=== PATIENT | male | born 1955 | race Caucasian/White ===

== ENCOUNTER → 2021-01-08 15:47 | Outpatient (BNVA) | payer MEDICARE, SELFPAY | PROVIDERS: Family Provider Internal Medicine; Visit Provider Surgery | DX: K92.1 Melena (principal); R13.10 Dysphagia, unspecified; Z11.52 Encounter for screening for COVID-19 | CPT/HCPCS: 87635 ==

== ENCOUNTER 2021-01-13 07:54 | Day surgery (SDC) | payer MEDICARE, SELFPAY ==
[2021-01-12 12:17] VITALS: BMI 29.5
[2021-01-13 09:03] VITALS: BP 164/98; PULSE 78; RESP 18; TEMP 36.6; O2SAT 96
[2021-01-13] MEDS: sodium chloride 0.9% 1,000 ML 30 ML IV (09:10)
--- NOTE | 2021-01-13 10:29 | W.PM.OPSUD ---
Surgery/Procedure H&P Update DATE OF PROCEDURE: January 13, 2021 DATE H&P PERFORMED: 01/30/21 H&P UPDATE INFORMATION: I have reviewed H&P completed within last 30 days, I have examined patient prior to procedure and No changes to prior documentation PREOP DIAGNOSIS: panendoscopy PLANNED PROCEDURE: Operation Date: 01/13/21 09:45 Proposed Procedures p EGD Dilation W/ Balloon(Not Applicable) - Rommel Rosas MD s Colonoscopy(Not Applicable) - Rommel Rosas MD
--- NOTE | 2021-01-13 10:30 | ANES.PREANE2 ---
Pre-Anesthetic Assessment Pre-Anesthetic Assessment: Height/Weight: Height 1.75 m Weight 90.718 kg Temp Pulse Resp BP Pulse Ox 97.8 F 78 18 164/98 96 01/13/21 09:03 01/13/21 09:03 01/13/21 09:03 01/13/21 09:03 01/13/21 09:03 Preop Diagnosis: panendoscopy Proposed Procedure: Operation Date: 01/13/21 09:45 Proposed Procedures p EGD Dilation W/ Balloon(Not Applicable) - Rommel Rosas MD s Colonoscopy(Not Applicable) - Rommel Rosas MD Was Beta Tommie taken within 24 hours: N/A Last intake: Intake Last Liquid Date 01/12/21 Last Solid Date 01/12/21 Social: Social History: No alcohol and No tobacco Exam: Pre-Anes Outpt Exam: alert, oriented x 3, clear to auscultation bilaterally and regular rate & rhythm Airway: Submandibular: WNL Cervical ROM: WNL MP: 2 Pulmonary: Pulmonary: None reported CV/HEM: CV/HEM: HTN : : None reported Hepatic: Hepatic: None reported GI: GI: GERD Comments: Dysphagia Metabolic: Metabolic: DM Comments: Gout Musc/skel: Musc/skel: None reported Neuropsych: Neuropsych: None reported Anesthetic Plan: ASA status: 2 Anesthesia: MAC Meds/Allergies Current Medications: Current Medications Generic Name Dose Route Start Last Admin Trade Name Freq PRN Reason Stop Dose Admin Sodium Chloride 1,000 mls @ 30 ml s/hr 01/13/21 08:45 01/13/21 09:10 Sodium Chloride 0.9% IV 01/14/21 08:44 30 mls/hr .Q24H OREN Administration PFSH Anesthesia PFSH: Medical History (Updated 01/02/21 @ 17:47 by Rommel Rosas MD) Angel's palsy Diabetes DVT (deep venous thrombosis) Hypertension Nephrolithiasis Surgical History (Updated 01/02/21 @ 09:30 by Rommel Rosas MD) History of colonoscopy Family History (Updated 01/02/21 @ 08:54 by Tasneem Reyes, RN) Denies family history of Anesthesia complication Bleeding disorder Social History (Updated 01/02/21 @ 08:55 by Tasneem Reyes, RN) Smoking and tobacco status: never smoked Data Anesthesia Cardiac Studies: No Data to Display
[2021-01-13 11:08] VITALS: BP 136/82; PULSE 89; RESP 16; TEMP 36.6; O2SAT 99
[2021-01-13 11:23] VITALS: BP 150/84; PULSE 76; RESP 18; TEMP 36.7; O2SAT 100
--- NOTE | 2021-01-13 12:02 | ANE.PACU2 ---
Inpatient post-anesthesia follow up: Airway intact: Yes Vital signs: Temperature 98.0 F Pulse Rate 76 Respiratory Rate 18 Blood Pressure 150/84 Pulse Oximetry 100 Oxygen Delivery Me thod Room Air Oxygen Flow Rate 2 Fraction of Inspir ed Oxygen Hydration adequate: Yes Nausea and vomiting: No Pain level: 1 Mental status: Baseline
[2021-01-19 10:21] LABS: Miscellaneous Test See Scanned Lab Rpt
[2021-01-20 08:47] LABS: Miscellaneous Test See Scanned Lab Rpt
== END 2021-01-13 12:15 | disposition home or self-care (01) ==
PROVIDERS: Visit Provider Surgery
PROC: 0DJD8ZZ Inspection of Lower Intestinal Tract, Via Natural or Artificial Opening Endoscopic (ICD-10-PCS; CPT 45378; 2021-01-13 09:45)
DX: K92.1 Melena (principal); C15.9 Malignant neoplasm of esophagus, unspecified; D12.5 Benign neoplasm of sigmoid colon; R13.10 Dysphagia, unspecified; Z86.718 Personal history of other venous thrombosis and embolism; E11.9 Type 2 diabetes mellitus without complications; I10 Essential (primary) hypertension; K21.9 Gastro-esophageal reflux disease without esophagitis
CPT/HCPCS: 43239; 45380; 88305; 88341; 88342; 88361; 88374; 96360; 96361; J2704; J7030

== ENCOUNTER 2021-02-06 11:31 | Outpatient (CLI) | payer MEDICARE, SELFPAY ==
[2021-02-06 12:44] LABS: Blood Urea Nitrogen 30 mg/dL (8-23); Glomerular Filtration Rate 31.7 mL/min (90-130)
[2021-02-06] MEDS: iohexol 300 mg/mL 50 mL Btl PO (12:53)
[2021-02-06] MEDS: iodixanol 320 mg/mL 100mL Btl IV (13:11)
--- NOTE | 2021-02-06 13:30 | CT_ITS ---
WS: [id number] CT scan of the chest With IV contrast, CT scan of the abdomen and pelvis with IV contrast and oral contrast. Additional two-dimensional coronal and sagittal reconstruction was performed. 02/06/2021 Clinical Data: K22.8 - Other specified diseases of esophagus Comparison: CT abdomen , 08/03/2014. DLP: 2563.[address] scans at [facility] use at least one of these dose optimization techniques: automat ed exposure control; mA and/or kV adjustment per patient size (includes targeted exams where dose is matched to clinical indication); or iterative reconstruction. Findings: Chest: The esophagus is dilated from the thoracic inlet to the gastroesophageal junction. At the gastroesoph ageal junction there is a probable soft tissue mass measuring 4.14 cm. There is food material and domo ris within the dilated esophagus. No nodules, masses or effusions are seen. No pneumonia or pneumothorax is present. The heart size is normal with no pericardial effusion. The pulmonary arterial system and thoracic aorta demonstrate no abnormalities or dilatations. There is no axillary or significant mediastinal adenopathy. The thoracic spine shows degenerative johny nge of the bodies. Abdomen/pelvis: The liver, gallbladder, spleen, adrenal glands and pancreas are normal. The kidneys show equal bilateral contrast excretion with bilateral cysts. Largest cyst on the right i s 5.0 cm in the central and posterior portion. No hydronephrosis or renal calculi are seen. The abdominal aorta is normal in size with calcification in the wall.. No appendicitis or diverticulitis is seen. Oral contrast is in the stomach, small bowel and colon, an d there is no bowel dilatation. No abscess, adenopathy, ascites, mass, obstruction or free air is see n. The bladder is unremarkable. The prostate is enlarged. No inguinal hernia is seen. The bones of the lumbar spine, pelvis, and hips show degenerative change of the lower lumbar vertebr al bodies.. CT/CT chest abd pel w con* Impression: 1. Dilated esophagus with a large amount of debris. 2. Probable soft tissue mass at gastroesophageal junction and recommend EGD and /or esophagram. 3. Negative for acute cardiopulmonary disease. 4. Negative for acute intra-abdominal and pelvic abnormalities.
== END 2021-02-06 11:32 | disposition home or self-care (01) ==
PROVIDERS: PCP Internal Medicine; Visit Provider Surgery
DX: K22.8 Other specified diseases of esophagus (principal); K92.1 Melena; R13.10 Dysphagia, unspecified
CPT/HCPCS: 71260; 74177; 82565; 84520; Q9967

== ENCOUNTER 2021-02-09 09:52 | Outpatient (CLI) | payer MEDICARE, SELFPAY ==
--- NOTE | 2021-02-09 17:37 | ONC CON_ITS ---
Dr. Billy New Patient Note Patient: Reza Eduardo Unit #: [id number]: 1955 Dicatated By: Shae Billy M.D.Date of Visit: Feb 09, 2021 Onc MED New Patient/Consult Referring Physician: Dr. PUNEET BANKS M.D. History of Present Illness: Mr. Reza Eduardo, is a 65-year-old gentleman with history of progressive dysphagia for the last few months and significant weight loss due to off and on nausea vomiting was referred to surgery for evaluation and on January 13, 2021 patient underwent EGD and colonoscopy EGD confirmed at 35 cm there was a mass noted which was not completely obstructing but was bleeding. 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 No nodules, masses or effusion seen. No significant mediastinal or axillary lymphadenopathy seen, liver was normal. Past medical history significant for Angel's palsy, diabetes, DVT, hypertension, nephrolithiasis Patient denies any hematemesis or hemoptysis patient denies any fever or chills, denies any recent history of aspiration pneumonia patient denies any history of jaundice denies any history of abdominal pain. Denies any bony pains Past Medical History: Mr. Eduardo's medical history consists of Angel's Palsy, DVT, hypertension, and type II diabetes. Past Surgical History: Mr. Eduardo's surgical/procedural history consists of colonoscopy in 2020 and cataract excision in 2013. Medications: Allopurinol 1 Tablet (of 300 mg) Oral daily, Atorvastatin Calcium 1 Tablet (of 20 mg) Oral daily, Cetirizine HCl 1 Tablet (of 10 mg) Oral daily, Lisinopril-hydroCHLOROthiazide 1 Tablet (of 20-25 mg) Oral daily, Omeprazole 1 Caplet (of 40 mg) Capsule Delayed Release Oral daily, Xarelto 1 Tablet (of 20 mg) Oral daily Allergies: No Known Allergies. Social History: Mr. Eduardo is . Mr. Eduardo has never smoked. He has no history of drinking. Family History: Mr. Eduardo's mother at age 81. Mr. Eduardo's father at age 56: myocardial infarction. Mr. Eduardo has 2 sisters: 2 . Review Of Symptoms: Review of Systems is not available for this patient. Vital Signs: Performed on Feb 09, 2021 14:23: 6, 0, 0.00, 0.00 sq.m, 99 %, 84 /min, 18 /min, 171/72 mm(hg) (HIGH), 98.7 F, and 189.4 lbs (HIGH). Performance Status: 1 - No physically strenuous activity, but ambulatory and able to carry out light or sedentary work (e.g. office work, light house work). (ECOG) Physical Examination: ENMT - No mouth sores, no thrush, no jaundice, Respiratory - Lungs are clear to auscultation, Cardiovascular - Regular rate and rhythm of heart, Abdomen - Soft, bowel sounds present, Extremities - No visible edema or rash. Lab/Imaging: Most recent lab results are not available for this patient. 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 Probable soft tissue mass at the gastroesophageal junction. No other abnormality seen in abdomen or pelvis Dysphagia/weight loss due to above History of DVT, on Xarelto History of Angel's palsy, History of diabetes, History of hypertension. Plan: Discussed with patient regarding his CT scan of chest abdomen pelvis finding as well as pathology, patient needs staging work-up which include CT PET scan and endoscopic ultrasound, as per patient he is scheduled to see Dr. Mc, GI surgical oncologist in [facility] on February 23, 2021, and he is already scheduled to see radiation oncology Patient will return to clinic after CT PET scan and surgical evaluation, at that time will discuss treatment plan based on CT PET scan finding and surgical/radiation oncology evaluation. Signed By: Shae Billy M.D. <<Signature on File>>
== END 2021-02-09 09:53 | disposition home or self-care (01) ==
LOC: ONCMED 10:00
PROVIDERS: PCP Internal Medicine; Visit Provider Internal Medicine Hematology & Oncology
DX: C16.0 Malignant neoplasm of cardia (principal); Z86.718 Personal history of other venous thrombosis and embolism; Z79.01 Long term (current) use of anticoagulants
CPT/HCPCS: 99205

== ENCOUNTER 2021-03-25 09:09 | Outpatient (CLI) | payer MEDICARE, SELFPAY ==
--- NOTE | 2021-03-25 14:24 | ONC FU_ITS ---
Dr. Billy follow up note Patient: Reza Eduardo Unit #: [id number]: 1955 Dicatated By: Shae Billy M.D.Date of Visit:March 25, 2021 Onc Med Follow-up/Prog Note History of Present Illness: Mr. Reza Eduardo, is a 65-year-old gentleman with history of progressive dysphagia for the last few months and significant weight loss due to off and on nausea vomiting was referred to surgery for evaluation and on January 13, 2021 patient underwent EGD and colonoscopy EGD confirmed at 35 cm there was a mass noted which was not completely obstructing but was bleeding. 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 No nodules, masses or effusion seen. No significant mediastinal or axillary lymphadenopathy seen, liver was normal. Patient underwent CT PET scan on March 18, 2021 which showed increased FDG activity associated with massive GE junction with SUV of 5.8. No evidence of metastatic disease or other abnormality patient had a J-tube placement for nutrition on February 27, 2021 Past medical history significant for Angel's palsy, diabetes, DVT, hypertension, nephrolithiasis Patient denies any hematemesis or hemoptysis patient denies any fever or chills, denies any recent history of aspiration pneumonia patient denies any history of jaundice denies any history of abdominal pain. Denies any bony pains Came for follow-up, denies any specific complaints, tolerating nutrition via J-tube well, no fever chills, no melena or hematochezia, no hemoptysis or hematemesis, no abdominal pain. Patient has seen Dr. Mc in [place] who placed J-tube, as well as Port-A-Cath and after reviewing his CT PET scan suggested neoadjuvant chemoradiation. Patient is here for further discussion Medications: Allopurinol 1 Tablet (of 300 mg) Oral daily, Atorvastatin Calcium 1 Tablet (of 20 mg) Oral daily, Cetirizine HCl 1 Tablet (of 10 mg) Oral daily, Lisinopril-hydroCHLOROthiazide 1 Tablet (of 20-25 mg) Oral daily, Omeprazole 1 Caplet (of 40 mg) Capsule Delayed Release Oral daily, Xarelto 1 Tablet (of 20 mg) Oral daily Allergies: No Known Allergies. Review of Systems: Review of Systems is not available for this patient. Vital Signs: Performed on March 25, 2021 09:54 Temperature - 97.8 F (LOW) Pulse - 89 /min Respiration - 18 /min BP - 86/54 mm(hg) (LOW) O2 Sat - 99 % Pain - 0 Performance Status: 1 - No physically strenuous activity, but ambulatory and able to carry out light or sedentary work (e.g. office work, light house work). (ECOG) Physical Examination: ENMT - No mouth sores, no thrush, no jaundice, Respiratory - Lungs are clear to auscultation, Cardiovascular - Regular rate and rhythm of heart, Abdomen - Soft, bowel sounds present, J-tube site clean, without discharge, Extremities - No visible edema. Lab/Imaging: Most recent lab results are not available for this patient. 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 Probable soft tissue mass at the gastroesophageal junction. No other abnormality seen in abdomen or pelvis CT PET scan done on March 18, 2021 shows increased FDG activity associated with mass at the GE junction with SUV of 5.8 and no evidence of metastatic disease or other abnormality Clinical stage II (T2-3), NX MX Status post J-tube placement on March 05, 2021 Dysphagia/weight loss due to above History of DVT, on Xarelto History of Angel's palsy, History of diabetes, History of hypertension. Plan: Discussed with patient regarding his CT PET scan report which showed localized disease probably T2 or T3 lesion, no visible lymph nodes on CT PET scan, clinically he may have stage II disease, he was evaluated by Dr. Mc who suggested neoadjuvant chemoradiation and then he will evaluate him for possible esophagectomy Discussed with patient regarding neoadjuvant chemoradiation with weekly carboplatin/Taxol, all the side effect possible benefits associate with carboplatin/Taxol including but not limited to bone marrow suppression, nausea vomiting, allergic reaction, peripheral neuropathy, most likely with Taxol or hyperglycemia with steroid used as premedication for Taxol infusion. Hair loss and esophagitis with combined chemoradiation were mentioned further teaching will be done by chemotherapy nurse, at this point will consider carboplatin AUC 2 and Taxol 50 mg per metered squared weekly concurrent with radiation therapy. Patient already has Port-A-Cath placed in, will obtain approval from his insurance prior to the treatment Patient already has appointment with radiation oncology. Patient has history of diabetes mellitus, will consider sliding scale to prevent steroid-induced hyperglycemia. Patient return to clinic 1 week after chemoradiation is initiated with CBC CMP Signed By: Shae Billy M.D. <<Signature on File>>
== END 2021-03-25 09:10 | disposition home or self-care (01) ==
LOC: ONCMED 09:12
PROVIDERS: PCP Internal Medicine; Visit Provider Internal Medicine Hematology & Oncology
DX: C16.0 Malignant neoplasm of cardia (principal); R13.10 Dysphagia, unspecified; R63.4 Abnormal weight loss; E11.9 Type 2 diabetes mellitus without complications; I10 Essential (primary) hypertension; G51.0 Bell's palsy; Z86.718 Personal history of other venous thrombosis and embolism; Z79.01 Long term (current) use of anticoagulants; Z79.899 Other long term (current) drug therapy
CPT/HCPCS: 99214

== ENCOUNTER 2021-04-03 05:43 | Outpatient (RCR) | payer MEDICARE, SELFPAY ==
--- NOTE | 2021-03-31 | CT_ITS ---
Radiation Therapy Planning CT images; total exam DLP: 863.71 mGy-cm MTDD
--- NOTE | 2021-03-31 12:40 | N.ONRAD NP_ITS ---
Radiation Oncology New Patient Visit Patient: Reza Eduardo MR#: [id number] : 1955> Age: 65> Sex: Male> Dictated by: Dr. Henrique Ellison Date of Service: 03/31/2021 Referring Physician(s) : Shae Billy M.D. 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 Radiotherapy to date: Summary > No prior radiation therapy. 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 He has had progressive difficulty with swallowing for several months and now a total of 64 pound weight loss. EGD and Bx done revealing adenocarcinoma 01/13/2021. PEG placed and can so far only tolerate 35 ml/hr 23 hr continuous infusion. Higher rates not yet tolerated. Still loosing some weight of 7 pounds over last 9 days. Unable to swallow even water by mouth now. Very fatigued even to go out on his porch. Feels now like a vegetable due to his profound disabling fatigue. Frustrated about the time it has taken to finally get to his treatment. No pain, N or V. PET/CT 03/18/2021 Localized uptake at the GE junction only. No occult metastatic disease see. Current Medications: Allopurinol, atorvastatin Calcium, cetirizine HCl, lisinopril-hydroCHLOROthiazide, omeprazole, xarelto. Allergies: No Known Allergies Medical History: - Angel's Palsy, - dVT, - hypertension, - type II diabetes. No history of collagen vascular disease. No previous radiation therapy. Surgical History: Cataract excision in 2013 and colonoscopy on 01/13/2021. Family History: Father is at age 56 having experienced myocardial infarction. Mother is at age 81. Sister is at age 75. Sister is at age 62. Social History: Last screened on 03/25/2021 - Never smoked. Last screened on 03/25/2021 - Never drank. x25 years has 23 yr old daughter with this . 2 sons and 1 step daughter. No cigarette or alcohol use. 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 Current Complaints / Review of Systems: . Vital Signs: Performed on 03/31/2021 9:24 AM BMI - 24.248 kg/m2 (high), Height - 69.00 in, Weight - 164.2 lbs, Temperature - 97.9 f, Pulse - 72, Respiration - 18, O2 Sat - 100 %, Pain - 2 and BP - 109/ 67 mm(hg). Physical Exam: Pleasnt in NAD. No palpable supraclav andenopathy, Port in right infraclav space. Lungs clear. Heart regular. PEG tube in ant abd wall nontender. No pedal edema. Performance Status: 2 Pathology: Primary, c16.0 - malignant neoplasm of cardia, Diagnosed 02/09/2021 (active). Lab: Imaging: See HPI Impression:St II adenocarcinoma of GE junction. Significant ongoing weight loss dispite maximal efforts to pursue 23 hr PEG tube infusion. No occult metastatic disease on PET/CT. Resonable to pursue 50 Gy of regional RT with chemo and then reassess clinical outcome and restaging to then consider surgical resection. Discussed with patient and . Plan: Signed by: 03/31/2021 12:38:48 PM <<Signature on File>> Time spent with patient: CPT Code: CPT Code:
[2021-04-02 09:06] LABS: Basophils % 0.3 %; Hematocrit 36.7 % (42.0-52.0); Hemoglobin 11.5 g/dL (11.7-16.6); Lymphocytes # 0.7 10^3/uL (0.8-4.8); Lymphocytes % 11.4 %; Mean Corpuscular HGB Conc 31.3 g/dL (30.0-36.0); Mean Corpuscular Hemoglobin 29.2 pg (28.0-34.0); Mean Corpuscular Volume 93.1 fL (80-94); Mean Platelet Volume 10.9 fL (7.4-10.4); Monocytes % 0.5 %; Neutrophils % 87.6 %; Nucleated Red Blood Cells % 0 %; Platelet Count 219 10^3/cmm (130-400); Red Blood Count 3.94 10^6/uL (4.1-5.3); Red Cell Distribution Width 15.1 % (12.1-15.1); White Blood Count 6.2 10^3/uL (4.0-10.0)
[2021-04-02 09:22] LABS: Alanine Aminotransferase 39 U/L (0-41); Albumin Level 3.9 g/dL (3.5-5.2); Alkaline Phosphatase 105 IU/L (40-130); Anion Gap 18.7 (5-19); Aspartate Amino Transferase 15 U/L (0-40); Blood Urea Nitrogen 44 mg/dL (8-23); Calcium 9.1 mg/dL (8.5-10.5); Carbon Dioxide 23 mmol/L (22-29); Chloride 106 mmol/L (98-107); Globulin 3.3 g/dL (1.3-4.6); Glomerular Filtration Rate 66.8 mL/min (90-130); Glucose 284 mg/dL (65-115); Osmolality Calculated 317 mOsm/kg (285-295); Potassium 4.7 mmol/L (3.5-5.1); Sodium 143 mmol/L (136-145); Total Bilirubin 0.4 mg/dL (0.15-1.2); Total Protein 7.2 g/dL (6.6-8.7)
[2021-04-02] MEDS: sodium chloride 0.9% 250 ML 75 ML IV (10:05)
[2021-04-02] MEDS: diphenhydrAMINE 50 mg/mL SDV 1mL 25 MG IVP (10:05)
[2021-04-02] MEDS: famotidine 20 mg/2 mL INJ IVP (10:09)
[2021-04-02] MEDS: palonosetron 0.25 mg/5 mL SDV IVP (10:12)
== END 2021-04-06 23:59 | disposition home or self-care (01) ==
LOC: ONCMED 05:43
PROVIDERS: Internal Medicine Hematology & Oncology; Absent Provider Radiology Radiation Oncology; PCP Internal Medicine; Visit Provider Radiology Radiation Oncology
DX: Z51.0 Encounter for antineoplastic radiation therapy (principal); Z51.11 Encounter for antineoplastic chemotherapy; C16.0 Malignant neoplasm of cardia; R13.10 Dysphagia, unspecified; R63.4 Abnormal weight loss; G51.0 Bell's palsy; E11.9 Type 2 diabetes mellitus without complications; I10 Essential (primary) hypertension; Z86.718 Personal history of other venous thrombosis and embolism; Z79.01 Long term (current) use of anticoagulants; Z79.899 Other long term (current) drug therapy
CPT/HCPCS: 77290; 77295; 77300; 77334; 77387; 77412; 77470; 80053; 85025; 96367; 96375; 96413; 96417; 99205; J1100; J1200; J2469; J3490; J7030; J7040; J7050; J9045; J9267

== ENCOUNTER 2021-04-20 05:43 | Outpatient (RCR) | payer MEDICARE, SELFPAY ==
--- NOTE | 2021-04-07 10:03 | ONCRAD TMN_ITS ---
Radiation Oncology Treatment Management Note Patient Name: Reza Eduardo Date of : 1955 Date of Service: 04/07/2021 Attending Physician: Jona Faust M.D. 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 The patient has received 6 Gy of a prescribed 50 Bains with an intensity modulated radiotherapy plan utilizing a step and shoot treatment technique. He has been prescribed carboplatin (AUC 2) and paclitaxel (50 mg/m2) weekly during radiotherapy. Upon review of systems, he denied he reported nausea and vomiting. On physical examination, the patient weighed 165 lbs. His temperature was 97.5 ???F with a blood pressure of 67/44 mmHg. His pulse was 86 bpm and the respiratory rate was 18. No erythema within the treatment stubbs. Continue esophageal radiotherapy as prescribed. I will order labs and IVFs with an anti-emetic. Signed by: Dr. Jona Faust 04/07/2021 10:02:20 AM
[2021-04-07] MEDS: ondansetron 2 mg/ML SDV 2 mL 8 MG IVP (10:30)
[2021-04-07] MEDS: sodium chloride 0.9% 1,000 ML 999 ML IV (10:30)
[2021-04-07 11:12] LABS: Basophils % 0.3 %; Eosinophils # 0.1 10^3/uL (0.0-0.8); Eosinophils % 0.7 %; Hematocrit 38.5 % (42.0-52.0); Hemoglobin 12.3 g/dL (11.7-16.6); Lymphocytes # 1.4 10^3/uL (0.8-4.8); Mean Corpuscular HGB Conc 31.9 g/dL (30.0-36.0); Mean Corpuscular Hemoglobin 30.3 pg (28.0-34.0); Mean Corpuscular Volume 94.8 fL (80-94); Mean Platelet Volume 10.8 fL (7.4-10.4); Monocytes # 0.2 10^3/uL (0.2-0.9); Monocytes % 3.2 %; Neutrophils # 5.21 10^3/uL (1.8-7.7); Neutrophils % 75.1 %; Nucleated Red Blood Cells % 0 %; Platelet Count 169 10^3/cmm (130-400); Red Blood Count 4.06 10^6/uL (4.1-5.3); White Blood Count 6.9 10^3/uL (4.0-10.0)
[2021-04-07 11:28] LABS: Alanine Aminotransferase 19 U/L (0-41); Albumin Level 3.7 g/dL (3.5-5.2); Alkaline Phosphatase 80 IU/L (40-130); Anion Gap 13.4 (5-19); Aspartate Amino Transferase 14 U/L (0-40); Blood Urea Nitrogen 40 mg/dL (8-23); Carbon Dioxide 27 mmol/L (22-29); Chloride 110 mmol/L (98-107); Glomerular Filtration Rate 66.8 mL/min (90-130); Glucose 109 mg/dL (65-115); Osmolality Calculated 312 mOsm/kg (285-295); Potassium 4.4 mmol/L (3.5-5.1); Sodium 146 mmol/L (136-145); Total Bilirubin 0.5 mg/dL (0.15-1.2); Total Protein 6.7 g/dL (6.6-8.7)
[2021-04-08 09:56] LABS: Magnesium 2.2 mg/dL (1.7-2.3)
[2021-04-09] MEDS: sodium chloride 0.9% 1,000 ML 999 ML IV (10:50)
[2021-04-09] MEDS: sodium chloride 0.9% 250 ML 75 ML IV (14:16)
[2021-04-09] MEDS: famotidine 20 mg/2 mL INJ IVP (14:16)
[2021-04-09] MEDS: diphenhydrAMINE 50 mg/mL SDV 1mL 25 MG IV (14:18)
[2021-04-09] MEDS: palonosetron 0.25 mg/5 mL SDV IV (14:22)
--- NOTE | 2021-04-09 14:47 | ONC FU_ITS ---
Dr. Billy follow up note Patient: Reza Eduardo Unit #: [id number]: 1955 Dicatated By: Shae Billy M.D.Date of Visit:Apr 09, 2021 Onc Med Follow-up/Prog Note History of Present Illness: Mr. Reza Eduardo, is a 65-year-old gentleman with history of progressive dysphagia for the last few months and significant weight loss due to off and on nausea vomiting was referred to surgery for evaluation and on January 13, 2021 patient underwent EGD and colonoscopy EGD confirmed at 35 cm there was a mass noted which was not completely obstructing but was bleeding. 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 No nodules, masses or effusion seen. No significant mediastinal or axillary lymphadenopathy seen, liver was normal. Patient underwent CT PET scan on March 18, 2021 which showed increased FDG activity associated with massive GE junction with SUV of 5.8. No evidence of metastatic disease or other abnormality patient had a J-tube placement for nutrition on February 27, 2021 Past medical history significant for Angel's palsy, diabetes, DVT, hypertension, nephrolithiasis Patient denies any hematemesis or hemoptysis patient denies any fever or chills, denies any recent history of aspiration pneumonia patient denies any history of jaundice denies any history of abdominal pain. Denies any bony pains Start on combined chemoradiation with weekly carbo/Taxol on April 02, 2021 Came for follow-up, complaining of nausea vomiting with carbonated drinks especially Sprite but no significant problem with taking oral medications with water. No hemoptysis or hematemesis, no diarrhea or constipation, tolerating combined chemoradiation with weekly carbo/Taxol well otherwise, as per he is not taking enough fluid to maintain hydration Medications: Xarelto 1 Tablet (of 20 mg) Oral daily Allergies: No Known Allergies. Review of Systems: Review of Systems is not available for this patient. Vital Signs: Performed on Apr 09, 2021 10:12 Height - 69.00 in Temperature - 97.4 F (LOW) Pulse - 106 /min (HIGH) Respiration - 18 /min BP - 137/84 mm(hg) O2 Sat - 99 % Pain - 0 Fatigue - 10 Performance Status: 1 - No physically strenuous activity, but ambulatory and able to carry out light or sedentary work (e.g. office work, light house work). (ECOG) Physical Examination: ENMT - No mouth sores, no thrush, no jaundice but poor oral hygiene and dry oral mucosa due to dehydration, Respiratory - Lungs are clear to auscultation, Cardiovascular - Regular rate and rhythm of heart, Abdomen - Soft, bowel sounds present, J-tube site clean, Extremities - No visible edema. Lab/Imaging: Test performed on Apr 07, 2021 12:55 Creatinine 1.1 mg/dL Cr Clearance (Est) 68.65 mL/min Test performed on April 02, 2021 08:30 Sodium 143 mmol/L Potassium 4.7 mmol/L Chloride 106 mmol/L CO2 23 mmol/L Anion Gap 18.7 BUN 44 mg/dL eGFR 66.8 mL/min Glucose 284 mg/dL Osmolality - Calculated 317 mOsm/kg Calcium 9.1 mg/dL Protein, Total 7.2 g/dL Albumin 3.9 g/dL Globulin 3.3 g/dL Bilirubin, Total 0.4 mg/dL ALT (SGPT) 39 U/L AST (SGOT) 15 U/L Alkaline Phosphatase 105 IU/L WBC 6.2 10 3/uL RBC 3.94 10 6/uL HGB 11.5 g/dL HCT 36.7 % MCV 93.1 fL MCH 29.2 pg MCHC 31.3 g/dL RDW 15.1 % Platelet Count 219 10 3/cmm MPV 10.9 fL Neutrophils 5.40 10 3/uL Lymphocytes 0.7 10 3/uL Monocytes 0.0 10 3/uL Eosinophils 0.0 10 3/uL Basophils 0.0 10 3/uL Neutrophil % 87.6 % Lymphocyte % 11.4 % Monocyte % 0.5 % Eosinophil % 0.0 % Basophils % 0.3 % NRBC % 0 % Impression: 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 Probable soft tissue mass at the gastroesophageal junction. No other abnormality seen in abdomen or pelvis CT PET scan done on March 18, 2021 shows increased FDG activity associated with mass at the GE junction with SUV of 5.8 and no evidence of metastatic disease or other abnormality Status post J-tube placement on March 05, 2021 Dysphagia/weight loss due to above History of DVT, on Xarelto History of Angel's palsy, History of diabetes, History of hypertension. Plan: Discussed with patient regarding his labs white blood count 6.9 hemoglobin 12.3 hematocrit 38.5 platelets 169,000 CMP within normal range except sodium 146 BUN 40 creatinine 1.1 glucose 109 Clinically, patient is doing reasonably well, appears mildly dehydrated, will consider IV fluids normal saline 1000 cc and after hydration, will consider his next weekly dose of carboplatin/Taxol concurrent with radiation therapy. Patient was advised to maintain hydration via J-tube and also advised to avoid carbonated drink orally or he can rinse his mouth for taste only. Also given a prescription for Zofran ODT and then patient return to clinic in 1 week with CBC CMP and if reasonable we will continue with weekly. Signed By: Shae Billy M.D. <<Signature on File>>
[2021-04-10] MEDS: sodium chloride 0.9% 1,000 ML 999 ML IV (09:50)
--- NOTE | 2021-04-13 09:47 | ONCRAD TMN_ITS ---
Radiation Oncology Treatment Management Note Patient Name: Reza Eduardo Date of : 1955 Date of Service: 04/13/2021 Attending Physician: Jona Faust M.D. 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 The patient has received 14 Gy of a prescribed 50 Bains with an intensity modulated radiotherapy plan utilizing a step and shoot treatment technique. He has been prescribed carboplatin (AUC 2) and paclitaxel (50 mg/m2) weekly during radiotherapy. Upon review of systems, he reported continued regurgitation with nausea. On physical examination, the patient weighed 169 lbs. His temperature was 97.9 ???F with a blood pressure of 122/71 mmHg. His pulse was 110 bpm and the respiratory rate was 20. No erythema within the treatment stubbs. Continue esophageal radiotherapy as planned. I will review his anti-emetic medications. Signed by: Dr. Jona Faust 04/13/2021 9:46:20 AM
[2021-04-14] MEDS: sodium chloride 0.9% 1,000 ML 999 ML IV (09:30)
[2021-04-16 09:08] LABS: Basophils % 0.3 %; Hematocrit 35.3 % (42.0-52.0); Hemoglobin 11.1 g/dL (11.7-16.6); Lymphocytes # 0.3 10^3/uL (0.8-4.8); Lymphocytes % 9.3 %; Mean Corpuscular HGB Conc 31.4 g/dL (30.0-36.0); Mean Corpuscular Hemoglobin 30.3 pg (28.0-34.0); Mean Corpuscular Volume 96.4 fL (80-94); Mean Platelet Volume 10.7 fL (7.4-10.4); Monocytes # 0.1 10^3/uL (0.2-0.9); Monocytes % 3.1 %; Neutrophils # 2.78 10^3/uL (1.8-7.7); Neutrophils % 86.7 %; Nucleated Red Blood Cells % 0 %; Platelet Count 135 10^3/cmm (130-400); Red Blood Count 3.66 10^6/uL (4.1-5.3); Red Cell Distribution Width 14.8 % (12.1-15.1); White Blood Count 3.2 10^3/uL (4.0-10.0)
[2021-04-16 09:24] LABS: Alanine Aminotransferase 14 U/L (0-41); Albumin Level 3.6 g/dL (3.5-5.2); Alkaline Phosphatase 78 IU/L (40-130); Anion Gap 14.6 (5-19); Aspartate Amino Transferase 12 U/L (0-40); Blood Urea Nitrogen 27 mg/dL (8-23); Calcium 8.3 mg/dL (8.5-10.5); Carbon Dioxide 24 mmol/L (22-29); Chloride 115 mmol/L (98-107); Globulin 2.4 g/dL (1.3-4.6); Glomerular Filtration Rate 96.4 mL/min (90-130); Glucose 216 mg/dL (65-115); Osmolality Calculated 320 mOsm/kg (285-295); Potassium 4.6 mmol/L (3.5-5.1); Sodium 149 mmol/L (136-145); Total Bilirubin 0.3 mg/dL (0.15-1.2)
[2021-04-16] MEDS: famotidine 20 mg/2 mL INJ IVP (10:55)
[2021-04-16] MEDS: sodium chloride 0.9% 250 ML 75 ML IV (10:55)
[2021-04-16] MEDS: diphenhydrAMINE 50 mg/mL SDV 1mL 25 MG IV (10:57)
[2021-04-16] MEDS: palonosetron 0.25 mg/5 mL SDV IV (11:02)
--- NOTE | 2021-05-03 22:51 | ONC FU_ITS ---
[facility] Patient Note Patient: Reza Eduardo Unit #: [id number]: 1955 Dictated By: Vonda MccollumDate of Visit: Apr 16, 2021 Onc MED Follow-Up/Prog Note Chief Complaint: Dysphagia/weight loss due to Esophageal cancer History of Present Illness: Mr. Eduardo is a 65-year-old gentleman with history of progressive dysphagia for the last few months and significant weight loss. He alsoh had intermittent nausea/ vomiting. He was referred to surgery for evaluation. On January 13, 2021, he underwent EGD and colonoscopy. The EGD confirmed at 35 cm there was a mass noted which was not completely obstructing but was bleeding. 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 There was food material and debris within the dilated esophagus. No nodules, masses or effusion seen. No significant mediastinal or axillary lymphadenopathy seen, liver was normal. He underwent PET/CT scan on March 18, 2021 which showed increased FDG activity associated with massive GE junction with SUV of 5.8. No evidence of metastatic disease or other abnormality. Mr Eduardo had a J-tube placement for nutrition on February 27, 2021. Past medical history significant for Angel's palsy, diabetes, DVT, hypertension, nephrolithiasis Mr Eduardo was referred to Dr Billy for further plan of care. He was offered treatment with combined therapy with radiation and weekly Carboplatin/Taxol. He began his first cycle of combined chemoradiation with weekly carbo/Taxol on April 02, 2021. He is here today for followup and is due for week 3 Carboplatin/Taxol. His nausea is better overall as he has gotten a little more accustom to his PEG tube. He denies any fever or chills. He denies any new pain. HIs bowels are moving normally for him. He states his energy is down but he can stil do most of his chores although he tires easily. He loves to garden and has been able to get out and work in the garden some. He states he is doing better with fluids. He denies any neuropathy. He denies mouth sores, sore throat. He denies any lower extremity edema. He denies any urinary problems. His ECOG is 1. Past Medical History: Angel's Palsy DVT Hypertension Type II diabetes Past Surgical History: Colonoscopy in 2020 Cataract excision in 2013 Allergies: No Known Allergies. Medications: Allopurinol 1 Tablet (of 300 mg) Oral daily Atorvastatin Calcium 1 Tablet (of 20 mg) Oral daily HumuLIN N KwikPen 10 Units (of 100 Units/mL) Subcutaneous q 8 hours Lantus SoloStar 20 Units (of 100 Units/mL) Subcutaneous at bedtime Lisinopril-hydroCHLOROthiazide 1 Tablet (of 20-25 mg) Oral daily LORazepam 1 Tablet (of 1 mg) Oral t.i.d. PRN NovoLOG FlexPen 2 Units (of 100 Units/mL) Subcutaneous b.i.d. Ondansetron HCl 1 Tablet (of 4 mg) Oral q 8 hours PRN Xarelto 1 Tablet (of 20 mg) Oral daily Family History: Mr. Eduardo's mother at age 81. Mr. Eduardo's father at age 56: myocardial infarction. Mr. Eduardo has 2 sisters: 2 . Social History: Mr. Eduardo is . Mr. Eduardo has never smoked. He has no history of drinking. Review Of Symptoms: <See Above> Vital Signs: Performed on Apr 16, 2021 09:37 Height - 69.00 in Temperature - 97.3 F (LOW) Pulse - 114 /min (HIGH) Respiration - 18 /min BP - 104/73 mm(hg) O2 Sat - 94 % (LOW) Pain - 0 Fatigue - 8,1 - No physically strenuous activity, but ambulatory and able to carry out light or sedentary work (e.g. office work, light house work). (ECOG) Physical Examination: Constitutional Alert, oriented, no acute distress. Skin pink, warm and dry. Head Normocephalic; atraumatic. Eyes Conjunctivae and sclerae are clear and without icterus. Pupils are reactive and equal. Hematologic/Lymphatic No petechiae or purpura. No tender or palpable lymph nodes in the cervical or supraclavicular areas. Respiratory Lungs are clear to auscultation without rhonchi or wheezing. Cardiovascular Regular rate and rhythm of heart without murmurs,clicks, gallops or rubs. Breasts Back/Spine Non-tender to palpation. Extremities No visible deformities, no cyanosis, clubbing or edema. Musculoskeletal No tenderness or swelling, normal range of motion without obvious weakness. Integumentary No rashes or lesions. Neurologic No sensory or motor deficits, normal cerebellar function, normal gait. Psychiatric Alert and oriented times three. Coherent speech. Verbalizes understanding of our discussions today. 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 Probable soft tissue mass at the gastroesophageal junction. No other abnormality seen in abdomen or pelvis CT PET scan done on March 18, 2021 shows increased FDG activity associated with mass at the GE junction with SUV of 5.8 and no evidence of metastatic disease or other abnormality Status post J-tube placement on March 05, 2021 Dysphagia/weight loss due to above History of DVT, on Xarelto History of Angel's palsy, History of diabetes, History of hypertension. Plan/Problems Addressed at this Visit: Adenocarcinoma of the gastroesophageal junction. He began combined therapy with daily radiation and carboplatin Taxol on April 02, 2021. He has required interim hydration and antiemetics but otherwise is tolerating treatment well. A. He will proceed with week 3 carboplatin paclitaxel. B. He will continue his current antiemetics and interim hydration as needed. C. Today's labs reviewed with Mr. Celaya copy was given to him. WBC is 3.2, hemoglobin 11.1, platelets 135,000 ANC is 2780. Potassium 4.6 his glucose was 216 steroid-induced creatinine 0.4 LFTs are normal. D. We will plan to see him back in 1 week with CBC CMP and plan for week for carboplatin paclitaxel. He was again reminded to pursue his premed steroids. E. If he continues with this plan of care for extended period of time we may need to consider changing his paclitaxel to Abraxane to avoid steroids. He is having hypoglycemia and excessive mood swings. F. Mr. Eduardo was instructed to contact us in interim should questions or problems arise. Signed By: Vonda Mccollum-, [facility] Shae Billy MD <<Signature on File>>
== END 2021-04-20 09:30 | disposition home or self-care (01) ==
LOC: ONCMED 05:43
PROVIDERS: Nurse Practitioner; Absent Provider Radiology Radiation Oncology; PCP Internal Medicine; Visit Provider Internal Medicine Hematology & Oncology
DX: Z51.0 Encounter for antineoplastic radiation therapy (principal); Z51.11 Encounter for antineoplastic chemotherapy; C16.0 Malignant neoplasm of cardia; G51.0 Bell's palsy; I10 Essential (primary) hypertension; E11.9 Type 2 diabetes mellitus without complications; R13.10 Dysphagia, unspecified; R63.4 Abnormal weight loss; Z86.718 Personal history of other venous thrombosis and embolism; Z79.899 Other long term (current) drug therapy
CPT/HCPCS: 77336; 77387; 77412; 80053; 83735; 85025; 96360; 96361; 96367; 96374; 96375; 96413; 96417; 99214; 99215; J1100; J1200; J2405; J2469; J3490; J7030; J7040; J7050; J9045; J9267

== ENCOUNTER 2021-04-20 09:39 | Emergency (ER) | payer MEDICARE, SELFPAY ==
[2021-04-20 09:43] VITALS: BP 109/60; PULSE 102; RESP 18; BMI 24.7
--- NOTE | 2021-04-20 09:47 | ECG_ITS ---
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 Measurements Intervals [place] Rate: 100 P: 44 NE: 126 QRS: 44 QRSD: 80 T: 63 QT: 364 QTc: 471 Interpretive Statements SINUS TACHYCARDIA WITH OCCASIONAL VENTRICULAR PREMATURE COMPLEXES WITH OCCASIONAL SUPRAVENTRICULAR PREMATURE COMPLEXES No previous ECG available for comparison Electronically Signed On 04-20-2021 22:49:24 CDT by Betty Stephens M.D. [id number]
--- NOTE | 2021-04-20 09:47 | XR_ITS ---
WS: [id number] Exam: XR chest 1V portable [id number] Date/Time of Exam: 04/20/2021 10:12 AM Reason For Exam: dyspnea/cough Comparison 07/23/2014. The lungs are clear and fully inflated. Normal cardiomediastinal structures and regional bony element s. A right-sided port is in place ending in the lower one third of the SVC in good position. XR/XR chest 1V portable [id number] IMPRESSION: 1. No acute cardiopulmonary finding.
--- NOTE | 2021-04-20 09:47 | CT_ITS ---
WS: [id number] CT HEAD TECHNIQUE: Noncontrast CT of the head obtained from the skullbase to the vertex. CLINICAL INFORMATION: AMS COMPARISON: None. DLP: 1682.[address] scans at [facility] use at least one of these dose optimization techniques: automat ed exposure control; mA and/or kV adjustment per patient size (includes targeted exams where dose is matched to clinical indication); or iterative reconstruction. FINDINGS: No evidence of intracranial hemorrhage or mass effect. Ventricular system and basal cisterns are klein nt. Mild small vessel changes with mild/moderate parenchymal volume loss. Chronic lacunar infarct lef t basal ganglia. No extra-axial fluid collections. No evidence of mass or mass effect. Normal chen-wh ite differentiation. Paranasal sinuses and mastoid air cells are well aerated. Retention cyst left maxillary sinus. .Lynn l visualized soft tissues. CT/CT head wo con* [id number] IMPRESSION: 1. No evidence of intracranial hemorrhage or mass effect. 2. Mild small vessel changes with mild to moderate parenchymal volume loss. 3. No acute intracranial findings.
[2021-04-20 10:08] LABS: ABG PCO2 22.6 mmHg (35-45); ABG PH Result 7.59 (7.35-7.45); Alveolar-Arterial Oxygen Gradi 9.9 mmHg (5-10); Base Excess ABG 0.9 mmol/L (-2.0-2.0); Blood Gas Allen Test Pos; Blood Gas Operator Identificat CAK; Blood Gas Sample Site Radial, left; Blood Gas Sample Type Arterial; Carboxyhemoglobin 0.5 %THgb (0.4-20.1); HCO3 ABG 21.6 mmol/L (22-26); HGB O2 Sat 98.2 % (95-100); Ionized Calcium Level - ABG 1.2 mmol/L (1.1-1.4); Methemoglobin 0.9 % (0.4-1.5); Oxygen Device NC; Oxygen Saturation ABG 99.6; Potassium Level - ABG 4.4 mmol/L (3.5-5.0); Total Hemoglobin 10.5 g/dL (14-18)
[2021-04-20 10:28] LABS: Basophils % 0.2 %; Eosinophils % 0.7 %; Hematocrit 34.4 % (42.0-52.0); Hemoglobin 10.5 g/dL (11.7-16.6); Lymphocytes # 0.6 10^3/uL (0.8-4.8); Mean Corpuscular HGB Conc 30.5 g/dL (30.0-36.0); Mean Corpuscular Hemoglobin 29.7 pg (28.0-34.0); Mean Corpuscular Volume 97.2 fL (80-94); Mean Platelet Volume 10.4 fL (7.4-10.4); Monocytes # 0.2 10^3/uL (0.2-0.9); Monocytes % 4.2 %; Neutrophils # 3.21 10^3/uL (1.8-7.7); Neutrophils % 80.2 %; Nucleated Red Blood Cells % 0.5 %; Platelet Count 122 10^3/cmm (130-400); Red Blood Count 3.54 10^6/uL (4.1-5.3)
[2021-04-20 10:51] LABS: Troponin(5th) Baseline 35 ng/L (0-15)
[2021-04-20 10:53] LABS: Alanine Aminotransferase 14 U/L (0-41); Albumin Level 3.3 g/dL (3.5-5.2); Alkaline Phosphatase 72 IU/L (40-130); Anion Gap 15.7 (5-19); Aspartate Amino Transferase 12 U/L (0-40); Blood Urea Nitrogen 32 mg/dL (8-23); Calcium 8.4 mg/dL (8.5-10.5); Carbon Dioxide 25 mmol/L (22-29); Chloride 116 mmol/L (98-107); Creatine Phosphokinase 29 U/L (39-308); Globulin 2.1 g/dL (1.3-4.6); Glomerular Filtration Rate 66.8 mL/min (90-130); Glucose 173 mg/dL (65-115); Osmolality Calculated 325 mOsm/kg (285-295); Potassium 4.7 mmol/L (3.5-5.1); Sodium 152 mmol/L (136-145); Total Bilirubin 0.5 mg/dL (0.15-1.2); Total Protein 5.4 g/dL (6.6-8.7)
--- NOTE | 2021-04-20 10:56 | ED_ITS ---
HPI - Altered Mental Status General: Chief Complaint: Altered Mental Status Stated Complaint: INCREASED LETHARGY Time Seen by Provider: 04/20/21 09:41 History of Present Illness: HPI narrative: 65-year-old male presents emergency room with altered mental status. He presented to the oncology office today was supposed to undergo radiation therapy for his esophageal CA he seemed lethargic tired somewhat disoriented so he was sent to the emergency room for evaluation has not had any fever has not had any vomiting or diarrhea he is mildly short of breath he is alert and oriented in the emergency room answers all questions appropriately as to time place person. MD complaint: confusion Onset (ago): hour(s) Timing confirmed by: spouse Severity: mild Consistency of symptoms: Waxing and Waning Associated symptoms: Deny auditory hallucinations, visual hallucinations, delusions or racing thoughts Review of Systems Const: Denies: fever(s), chills, body aches, change in appetite, fatigue or malaise ENMT: Denies: throat pain, ear or mastoid pain, nasal discharge or nasal congestion Card: Denies: chest pain, edema, dyspnea on exertion or orthopnea Resp: Denies: dyspnea, productive cough or non-productive cough GI: Denies: abdominal pain, nausea, vomiting, hematemesis, coffee ground emesis, diarrhea, constipation, bloating, hematochezia or melena : Denies: flank pain, dysuria, urinary frequency or urinary urgency Skin/Breast: Denies: rash or pruritus Psych: Denies: visual hallucinations or auditory hallucinations PFSH ED PFSH: Medical History Angel's palsy Diabetes DVT (deep venous thrombosis) Hypertension Nephrolithiasis Surgical History H/O esophagogastroduodenoscopy (01/13/21) History of colonoscopy (01/13/21) Family History Denies family history of Anesthesia complication Bleeding disorder Social History Smoking and tobacco status: never smoked Physical Exam Const: COMMON NORMALS: no acute distress GENERAL APPEARANCE: cooperative and comfortable ORIENTATION/CONSCIOUSNESS: Yes awake, Yes oriented to person, Yes oriented to place and Yes oriented to time HENMT: COMMON NORMALS: normocephalic, atraumatic, hearing grossly normal bilaterally, external ears normal, EAC's normal, TM's normal bilaterally, Normal nasal mucous membranes and turbinates present, moist oral mucous membranes and oropharynx normal HEAD & SCALP: normocephalic and atraumatic NOSE: Normal nasal mucous membranes and turbinates present EXTERNAL EAR: Yes external ears normal EXTERNAL AUDITORY CANAL: EAC's normal TYMPANIC MEMBRANE: TM's normal bilaterally Eye: COMMON NORMALS: Equal, round and reactive pupils present, EOMs intact bilaterally, conjunctivae normal and no scleral icterus CONJUNCTIVA: Yes conjunctivae normal PUPIL: Yes Equal, round and reactive pupils present Neck/C-Spine: COMMON NORMALS: full ROM, no lymphadenopathy, supple and no JVD Resp: COMMON NORMALS: normal respiratory effort, No retractions, No use of accessory muscles and clear to auscultation bilaterally AUSCULTATION: clear to auscultation bilaterally Cardio: COMMON NORMALS: no JVD, regular rate, regular rhythm and No murmurs present (Cardio) RATE: regular rate RHYTHM: regular rhythm GI: COMMON NORMALS: Soft to palpation and No hepatosplenomegaly present AUSCULTATION: Yes normoactive bowel sounds PALPATION: Yes Soft to palpation, No Tenderness to palpation present (GI), No Guarding due to palpation present (GI) and Yes No hepatosplenomegaly present Extremity: COMMON NORMALS: normal to inspection, capillary refill normal, no clubbing, cyanosis or edema, no calf tenderness and no pedal edema Neuro: SENSORIUM/ORIENTATION: Yes oriented to person, Yes oriented to place and Yes oriented to time Psych: THOUGHT CONTENT: No delusions Skin: COMMON NORMALS: no rashes or lesions noted GENERAL SKIN EXAM: no rashes or lesions noted Course Vital Signs: Vital signs: Vital Signs Temperature 98.2 F 04/20/21 11:49 Pulse Rate 124 H 04/20/21 14:46 Respiratory Rate 18 04/20/21 14:46 Blood Pressure 115/45 04/20/21 14:46 Pulse Oximetry 100 04/20/21 14:46 MDM - Altered Mental Status MDM Narrative: Medical decision making narrative: He does have some mild hyponatremia gave him some fluids he is feeling much better. Pretty similar to what he had in the past. We will have him follow-up with his primary care doctor my return if he has problems while he was here was able answer all questions appropriately discussed with him and the family he would prefer to go home think we can discharge him at this time encouraged fluid intake recheck his primary care doctor in the next few days return for this problem Lab Data: Labs: Lab Results 04/20/21 04/20/21 04/20/21 Range/Units 09:57 10:15 10:15 WBC 4.0 (4.0-10.0) 10^3/ uL RBC 3.54 L (4.1-5.3) 10^6/u L Hgb 10.5 L (11.7-16.6) g/dL Hct 34.4 L (42.0-52.0) % MCV 97.2 H (80-94) fL MCH 29.7 (28.0-34.0) pg MCHC 30.5 (30.0-36.0) g/dL RDW 15.0 (12.1-15.1) % Plt Count 122 L (130-400) 10^3/c mm MPV 10.4 (7.4-10.4) fL Neut % (Auto) 80.2 % Lymph % (Auto) 14.0 % [place] % (Auto) 4.2 % Eos % (Auto) 0.7 % Baso % (Auto) 0.2 % Neut # (Auto) 3.21 (1.8-7.7) 10^3/u L Lymph # (Auto) 0.6 L (0.8-4.8) 10^3/u L [place] # (Auto) 0.2 (0.2-0.9) 10^3/u L Eos # (Auto) 0.0 (0.0-0.8) 10^3/u L Baso # (Auto) 0.0 (0.0-0.1) 10^3/u L Nucleated RBC % (a uto) 0.5 % Nucleated RBCs # 0.0 /100WBC Specimen Type Arterial Sample Site Radial, left ABG pH 7.59 H* (7.35-7.45) ABG pCO2 22.6 L (35-45) mmHg ABG pO2 121.0 H (80.0-100.0) mmH g ABG HCO3 21.6 L (22-26) mmol/L ABG O2 Saturation 99.6 ABG Base Excess 0.9 (-2.0-2.0) mmol/ L Robby Test Pos A-a O2 Gradient 9.9 (5-10) mmHg Hematocrit 32.0 L (42-52) % Hgb O2 Saturation 98.2 (95-100) % Carboxyhemoglobin 0.5 (0.4-20.1) %THgb Methemoglobin 0.9 (0.4-1.5) % Total Hemoglobin 10.5 L (14-18) g/dL Sodium 152.0 H 152 H (131-143) mmol/L Potassium 4.4 4.7 (3.5-5.0) mmol/L Glucose 175.0 H 173 H (70-115) mg/dL Ionized Calcium 1.2 (1.1-1.4) mmol/L O2 Delivery Device Nc O2 Liters/Min 3.0 % FiO2 32.0 % Manager Placement ID Cak Chloride 116 H (98-107) mmol/L Carbon Dioxide 25 (22-29) mmol/L Anion Gap 15.7 (5-19) BUN 32 H (8-23) mg/dL Creatinine 1.1 (0.7-1.2) mg/dL GFR Calculation 66.8 L (90-130) mL/min Calculated Osmolal ity 325 H (285-295) mOsm/k g Calcium 8.4 L (8.5-10.5) mg/dL Magnesium 2.0 (1.7-2.3) mg/dL Total Bilirubin 0.5 (0.15-1.2) mg/dL AST 12 (0-40) U/L ALT 14 (0-41) U/L Alkaline Phosphata se 72 (40-130) IU/L Creatine Kinase 29 L (39-308) U/L Troponin T Baselin e (0-15) ng/L Troponin T 120 Min vandana (0-15) ng/L Delta Troponin T (0-10) ABS# Total Protein 5.4 L (6.6-8.7) g/dL Albumin 3.3 L (3.5-5.2) g/dL Globulin 2.1 (1.3-4.6) g/dL Urine Color (Yellow) Urine Appearance (CLEAR) Urine pH (5-7) Ur Specific Gravit y (1.005-1.030) Urine Protein (Negative) Urine Glucose (UA) (Normal) Urine Ketones (Negative) Urine Blood (Negative) Urine Nitrate (Negative) Urine Bilirubin (Negative) Urine Urobilinogen (Negative) mg/dL Ur Leukocyte Isi ase (Negative) Urine RBC (0-2) /hpf Urine WBC (0-5) /hpf Ur Squamous Epith Cells (0-5) /hpf Amorphous Sediment Urine Bacteria (NONE) /hpf 04/20/21 04/20/21 04/20/21 Range/Units 10:15 10:57 12:15 WBC (4.0-10.0) 10^3/ uL RBC (4.1-5.3) 10^6/u L Hgb (11.7-16.6) g/dL Hct (42.0-52.0) % MCV (80-94) fL MCH (28.0-34.0) pg MCHC (30.0-36.0) g/dL RDW (12.1-15.1) % Plt Count (130-400) 10^3/c mm MPV (7.4-10.4) fL Neut % (Auto) % Lymph % (Auto) % [place] % (Auto) % Eos % (Auto) % Baso % (Auto) % Neut # (Auto) (1.8-7.7) 10^3/u L Lymph # (Auto) (0.8-4.8) 10^3/u L [place] # (Auto) (0.2-0.9) 10^3/u L Eos # (Auto) (0.0-0.8) 10^3/u L Baso # (Auto) (0.0-0.1) 10^3/u L Nucleated RBC % (a uto) % Nucleated RBCs # /100WBC Specimen Type Sample Site ABG pH (7.35-7.45) ABG pCO2 (35-45) mmHg ABG pO2 (80.0-100.0) mmH g ABG HCO3 (22-26) mmol/L ABG O2 Saturation ABG Base Excess (-2.0-2.0) mmol/ L Robby Test A-a O2 Gradient (5-10) mmHg Hematocrit (42-52) % Hgb O2 Saturation (95-100) % Carboxyhemoglobin (0.4-20.1) %THgb Methemoglobin (0.4-1.5) % Total Hemoglobin (14-18) g/dL Sodium (131-143) mmol/L Potassium (3.5-5.0) mmol/L Glucose (70-115) mg/dL Ionized Calcium (1.1-1.4) mmol/L O2 Delivery Device O2 Liters/Min % FiO2 % Manager Placement ID Chloride (98-107) mmol/L Carbon Dioxide (22-29) mmol/L Anion Gap (5-19) BUN (8-23) mg/dL Creatinine (0.7-1.2) mg/dL GFR Calculation (90-130) mL/min Calculated Osmolal ity (285-295) mOsm/k g Calcium (8.5-10.5) mg/dL Magnesium (1.7-2.3) mg/dL Total Bilirubin (0.15-1.2) mg/dL AST (0-40) U/L ALT (0-41) U/L Alkaline Phosphata se (40-130) IU/L Creatine Kinase (39-308) U/L Troponin T Baselin e 35 H (0-15) ng/L Troponin T 120 Min vandana 33.15 H (0-15) ng/L Delta Troponin T -1.85 L (0-10) ABS# Total Protein (6.6-8.7) g/dL Albumin (3.5-5.2) g/dL Globulin (1.3-4.6) g/dL Urine Color Yellow (Yellow) Urine Appearance Clear (CLEAR) Urine pH 6.5 (5-7) Ur Specific Gravit y 1.010 (1.005-1.030) Urine Protein 1+ H (Negative) Urine Glucose (UA) Norm (Normal) Urine Ketones Negative (Negative) Urine Blood Neg (Negative) Urine Nitrate Negative (Negative) Urine Bilirubin Neg (Negative) Urine Urobilinogen 1 H (Negative) mg/dL Ur Leukocyte Isi ase Negative (Negative) Urine RBC None (0-2) /hpf Urine WBC 0-4 H (0-5) /hpf Ur Squamous Epith Cells None (0-5) /hpf Amorphous Sediment Not Reportable Urine Bacteria None (NONE) /hpf Discharge Plan Discharge Patient Disposition: Home Clinical Impression: Dehydration, mild, Hypernatremia, Esophageal cancer Condition: Stable Prescriptions: No Action omeprazole 40 mg capsule,delayed release(DR/EC) 40 mg PO PRN RF: 0 lisinopril-hydrochlorothiazide 20-25 mg tablet 1 tab PO QAM RF: 0 atorvastatin 20 mg tablet 20 mg PO DAILY RF: 0 Xarelto 20 mg tablet 20 mg PO BEDTIME RF: 0 Hold Instructions: Resume on 01/15/21. allopurinol 300 mg tablet 300 mg PO BEDTIME RF: 0 prochlorperazine maleate 10 mg tablet 10 mg PO Q4H PRN (Reason: Nausea) RF: 0 dexamethasone 4 mg tablet See Rx Instructions .ROUTE .COMPLEX RF: 0 lorazepam 1 mg tablet 1 mg PO TID PRN (Reason: Nausea) RF: 0 ondansetron 4 mg tablet,disintegrating 4 mg PO Q8H PRN (Reason: Nausea And Vomiting) RF: 0 Humulin N NPH Insulin KwikPen 100 unit/mL (3 mL) insulin pen 10 unit SUBCUT Q8H RF: 0 Novolog Flexpen U-100 Insulin 100 unit/mL (3 mL) insulin pen See Rx Instructions .ROUTE .COMPLEX RF: 0 Lantus Solostar U-100 Insulin 100 unit/mL (3 mL) insulin pen 20 unit SUBCUT BEDTIME RF: 0 Discharge Orders: Discharge ED (Routine); Ordered 04/20/21 Ordered By: Jeffry Kaye Referrals: Shanon Toth MD [Primary Care Provider] - Discharge Diet: Usual diet Discharge Activity: Resume usual activity Patient Instructions: Opioid Safety Coding Level of Care Code ED Cotton 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
[2021-04-20 11:16] LABS: Bilirubin Urine Neg (Negative); Blood Urine Neg (Negative); Glucose Urine UA Norm (Normal); Ketones Urine Negative (Negative); Nitrate Urine Negative (Negative); Protein Urine 1+ (Negative); Urine Appearance Clear (CLEAR); Urine Color Yellow (Yellow); Urobilinogen Urine 1 mg/dL (Negative); pH Urine 6.5 (5-7)
[2021-04-20 11:17] LABS: Add Urine Microscopic? YES; Leukocyte Esterase Urine Negative (Negative)
[2021-04-20 11:21] LABS: Add Urine Culture? No; WBC Urine 0-4 /hpf (0-5)
--- NOTE | 2021-04-20 11:47 | ECG_ITS ---
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 Measurements Intervals [place] Rate: 98 P: 72 MO: 154 QRS: 54 QRSD: 90 T: 64 QT: 366 QTc: 469 Interpretive Statements SINUS RHYTHM WITH FREQUENT SUPRAVENTRICULAR PREMATURE COMPLEXES No previous ECG available for comparison Electronically Signed On 04-20-2021 22:58:15 CDT by Betty Stephens M.D. [id number]
[2021-04-20 11:49] VITALS: BP 93/61; PULSE 108; RESP 18; TEMP 36.8; O2SAT 100
[2021-04-20] MEDS: sodium chloride 0.9% 1,000 ML 999 ML IV (11:54)
[2021-04-20 12:54] LABS: Troponin 5 2HR 33.15 ng/L (0-15); Troponin 5 2HR Delta -1.85 ABS# (0-10)
--- NOTE | 2021-04-20 14:45 | PC.NURSE ---
1 liter given per ems
[2021-04-20 14:46] VITALS: BP 115/45; PULSE 124; RESP 18; O2SAT 100
== END 2021-04-20 13:30 | disposition home or self-care (01) ==
PROVIDERS: Emergency Provider Family Medicine; PCP Internal Medicine
DX: E87.0 Hyperosmolality and hypernatremia (principal); E86.0 Dehydration; C15.9 Malignant neoplasm of esophagus, unspecified; Z79.4 Long term (current) use of insulin; E11.9 Type 2 diabetes mellitus without complications; I10 Essential (primary) hypertension
CPT/HCPCS: 36415; 36600; 70450; 71045; 80051; 80053; 81001; 82330; 82550; 82805; 83735; 84484; 85025; 87040; 93005; 96360; 99284; J7030

== ENCOUNTER 2021-04-28 05:42 | Outpatient (RCR) | payer MEDICARE, SELFPAY ==
[2021-04-21] MEDS: sodium chloride 0.9% 1,000 ML 999 ML IV (09:30)
--- NOTE | 2021-04-21 09:57 | ONCRAD TMN_ITS ---
Radiation Oncology Treatment Management Note Patient Name: Reza Eduardo Date of : 1955 Date of Service: 04/21/2021 Attending Physician: Jona Faust M.D. 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 The patient has received 24 Gy of a prescribed 50 Bains with an intensity modulated radiotherapy plan utilizing a step and shoot treatment technique. He has been prescribed carboplatin (AUC 2) and paclitaxel (50 mg/m2) weekly during radiotherapy. Upon review of systems, he reported continued regurgitation with nausea. On physical examination, the patient weighed 162 lbs. His temperature was 97 ???F with a blood pressure of 95/62 mmHg. His pulse was 62 bpm and the respiratory rate was 20. No erythema within the treatment stubbs. Continue esophageal radiotherapy as prescribed. He will receive IVFs this am. I will request a dietary re-evaluation on account of continued weight loss. Signed by: Dr. Jona Faust 04/21/2021 9:57:05 AM
[2021-04-22] MEDS: sodium chloride 0.9% 1,000 ML 999 ML IV (10:07)
[2021-04-23 09:59] LABS: Basophils % 0.3 %; Hematocrit 30.8 % (42.0-52.0); Hemoglobin 9.9 g/dL (11.7-16.6); Lymphocytes # 0.2 10^3/uL (0.8-4.8); Lymphocytes % 7.5 %; Mean Corpuscular HGB Conc 32.1 g/dL (30.0-36.0); Mean Corpuscular Hemoglobin 30.2 pg (28.0-34.0); Mean Corpuscular Volume 93.9 fL (80-94); Mean Platelet Volume 10.9 fL (7.4-10.4); Monocytes # 0.1 10^3/uL (0.2-0.9); Neutrophils # 2.73 10^3/uL (1.8-7.7); Neutrophils % 89.2 %; Nucleated Red Blood Cells % 0 %; Platelet Count 153 10^3/cmm (130-400); Red Blood Count 3.28 10^6/uL (4.1-5.3); Red Cell Distribution Width 14.6 % (12.1-15.1); White Blood Count 3.1 10^3/uL (4.0-10.0)
[2021-04-23 10:42] LABS: Alanine Aminotransferase 16 U/L (0-41); Albumin Level 3.2 g/dL (3.5-5.2); Alkaline Phosphatase 87 IU/L (40-130); Anion Gap 14.6 (5-19); Aspartate Amino Transferase 13 U/L (0-40); Blood Urea Nitrogen 26 mg/dL (8-23); Calcium 8.2 mg/dL (8.5-10.5); Carbon Dioxide 22 mmol/L (22-29); Chloride 113 mmol/L (98-107); Globulin 2.5 g/dL (1.3-4.6); Glomerular Filtration Rate 74.5 mL/min (90-130); Glucose 317 mg/dL (65-115); Osmolality Calculated 317 mOsm/kg (285-295); Potassium 4.6 mmol/L (3.5-5.1); Sodium 145 mmol/L (136-145); Thyroid Stimulating Hormone 1.11 uIU/mL (0.27-4.20); Total Bilirubin 0.4 mg/dL (0.15-1.2); Total Protein 5.7 g/dL (6.6-8.7)
[2021-04-23] MEDS: sodium chloride 0.9% 250 ML 75 ML IV (11:41)
[2021-04-23] MEDS: famotidine 20 mg/2 mL INJ IVP (11:41)
[2021-04-23] MEDS: diphenhydrAMINE 50 mg/mL SDV 1mL 25 MG IVP (11:47)
[2021-04-24] MEDS: sodium chloride 0.9% 1,000 ML 999 ML IV (09:54)
[2021-04-27] MEDS: sodium chloride 0.9% 1,000 ML 999 ML IV (09:45)
--- NOTE | 2021-04-27 10:03 | ONCRAD TMN_ITS ---
Radiation Oncology Treatment Management Note Patient Name: Reza Eduardo Date of : 1955 Date of Service: 04/27/2021 Attending Physician: Jona Faust M.D. 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 The patient has received 32 Gy of a prescribed 50 Bains with an intensity modulated radiotherapy plan utilizing a step and shoot treatment technique. He has been prescribed carboplatin (AUC 2) and paclitaxel (50 mg/m2) weekly during radiotherapy. Upon review of systems, he reported continued regurgitation with nausea. On physical examination, the patient weighed 161 lbs. His temperature was 97.5 ???F with a blood pressure of 115/72 mmHg. His pulse was 62 bpm and the respiratory rate was 18. No erythema within the treatment stubbs. Continue esophageal radiotherapy as prescribed. A repeat EGD has been scheduled. Signed by: Dr. Jona Faust 04/27/2021 10:02:23 AM
[2021-04-28] MEDS: sodium chloride 0.9% 1,000 ML 999 ML IV (09:50)
--- NOTE | 2021-05-11 20:43 | ONC FU_ITS ---
[facility] Patient Note Patient: Reza Eduardo Unit #: [id number]: 1955 Dictated By: Vonda MccollumDate of Visit: Apr 23, 2021 Onc MED Follow-Up/Prog Note Chief Complaint: Dysphagia/weight loss due to Esophageal cancer History of Present Illness: Mr. Eduardo is a 65-year-old gentleman with history of progressive dysphagia for the last few months and significant weight loss. He alsoh had intermittent nausea/ vomiting. He was referred to surgery for evaluation. On January 13, 2021, he underwent EGD and colonoscopy. The EGD confirmed at 35 cm there was a mass noted which was not completely obstructing but was bleeding. 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 There was food material and debris within the dilated esophagus. No nodules, masses or effusion seen. No significant mediastinal or axillary lymphadenopathy seen, liver was normal. He underwent PET/CT scan on March 18, 2021 which showed increased FDG activity associated with massive GE junction with SUV of 5.8. No evidence of metastatic disease or other abnormality. Mr Eduardo had a J-tube placement for nutrition on February 27, 2021. Past medical history significant for Angel's palsy, diabetes, DVT, hypertension, nephrolithiasis Mr Eduardo was referred to Dr Billy for further plan of care. He was offered treatment with combined therapy with radiation and weekly Carboplatin/Taxol. He began his first cycle of combined chemoradiation with weekly carbo/Taxol on April 02, 2021. Mr Eduardo is here today for followup and is due for week 4 Carboplatin/Taxol. He has no new concerns today other than he is not in a very pleasant mood today. He is having mood changes today and is crabby . He states his nausea is still better overall. He denies any fever or chills. He denies any new pain. HIs bowels are moving normally for him. He states his energy is down but he can stil do most of his chores although he tires easily. He has been able to get out and work in the garden some again this week. He states he is doing better with IV fluids. He has been receiving 1 L of saline on the days of radiation. He has not had any shortness of breath orthopnea associated with the hydration. He denies any neuropathy. He denies mouth sores, sore throat. He denies any lower extremity edema. He denies any urinary problems. His ECOG is 1. Past Medical History: Angel's Palsy DVT Hypertension Type II diabetes Past Surgical History: Colonoscopy in 2020 Cataract excision in 2013 Allergies: No Known Allergies. Medications: Allopurinol 1 Tablet (of 300 mg) Oral daily Atorvastatin Calcium 1 Tablet (of 20 mg) Oral daily HumuLIN N KwikPen 10 Units (of 100 Units/mL) Subcutaneous q 8 hours Lantus SoloStar 20 Units (of 100 Units/mL) Subcutaneous at bedtime Lisinopril-hydroCHLOROthiazide 1 Tablet (of 20-25 mg) Oral daily LORazepam 1 Tablet (of 1 mg) Oral t.i.d. PRN NovoLOG FlexPen 2 Units (of 100 Units/mL) Subcutaneous b.i.d. Ondansetron HCl 1 Tablet (of 4 mg) Oral q 8 hours PRN Xarelto 1 Tablet (of 20 mg) Oral daily Family History: Mr. Eduardo's mother at age 81. Mr. Eduardo's father at age 56: myocardial infarction. Mr. Eduardo has 2 sisters: 2 . Social History: Mr. Eduardo is . Mr. Eduardo has never smoked. He has no history of drinking. Review Of Symptoms: <See Above> Vital Signs: Performed on Apr 23, 2021 10:44 Height - 69.00 in Temperature - 97.3 F (LOW) Pulse - 94 /min Respiration - 18 /min BP - 114/74 mm(hg) O2 Sat - 91 % (LOW) Pain - 0 Fatigue - 0,1 - No physically strenuous activity, but ambulatory and able to carry out light or sedentary work (e.g. office work, light house work). (ECOG) Physical Examination: Constitutional Alert, oriented, no acute distress. Skin pink, warm and dry. Head Normocephalic; atraumatic. Eyes Conjunctivae and sclerae are clear and without icterus. Pupils are reactive and equal. Hematologic/Lymphatic No petechiae or purpura. No tender or palpable lymph nodes in the cervical or supraclavicular areas. Respiratory Lungs are clear to auscultation without rhonchi or wheezing. Cardiovascular Regular rate and rhythm of heart without murmurs,clicks, gallops or rubs. Back/Spine Non-tender to palpation. Extremities No visible deformities, no cyanosis, clubbing or edema. Musculoskeletal No tenderness or swelling, normal range of motion without obvious weakness. Integumentary No rashes or lesions. Neurologic No sensory or motor deficits, normal cerebellar function, normal gait. Psychiatric Alert and oriented times three. Coherent speech. Verbalizes understanding of our discussions today. Laboratory:Test performed on Apr 23, 2021 10:57 Creatinine 1.0 mg/dL Cr Clearance (Est) 75.52 mL/min Test performed on Apr 23, 2021 09:36 Sodium 145 mmol/L TSH 1.11 uIU/mL Potassium 4.6 mmol/L Chloride 113 mmol/L CO2 22 mmol/L Anion Gap 14.6 BUN 26 mg/dL eGFR 74.5 mL/min Glucose 317 mg/dL Osmolality - Calculated 317 mOsm/kg Calcium 8.2 mg/dL Protein, Total 5.7 g/dL Albumin 3.2 g/dL Globulin 2.5 g/dL Bilirubin, Total 0.4 mg/dL ALT (SGPT) 16 U/L AST (SGOT) 13 U/L Alkaline Phosphatase 87 IU/L WBC 3.1 10 3/uL RBC 3.28 10 6/uL HGB 9.9 g/dL HCT 30.8 % MCV 93.9 fL MCH 30.2 pg MCHC 32.1 g/dL RDW 14.6 % Platelet Count 153 10 3/cmm MPV 10.9 fL Neutrophils 2.73 10 3/uL Lymphocytes 0.2 10 3/uL Monocytes 0.1 10 3/uL Eosinophils 0.0 10 3/uL Basophils 0.0 10 3/uL Neutrophil % 89.2 % Lymphocyte % 7.5 % Monocyte % 2.0 % Eosinophil % 0.0 % Basophils % 0.3 % NRBC % 0 % Impression: 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 Probable soft tissue mass at the gastroesophageal junction. No other abnormality seen in abdomen or pelvis CT PET scan done on March 18, 2021 shows increased FDG activity associated with mass at the GE junction with SUV of 5.8 and no evidence of metastatic disease or other abnormality Status post J-tube placement on March 05, 2021 Dysphagia/weight loss due to above History of DVT, on Xarelto History of Angel's palsy, History of diabetes, History of hypertension. Plan/Problems Addressed at this Visit: Adenocarcinoma of the gastroesophageal junction. He began combined therapy with daily radiation and carboplatin Taxol on April 02, 2021. He has required interim hydration and antiemetics but otherwise is tolerating treatment well. A. We will proceed with week 4 carboplatin/paclitaxel. B. Steroid compliance confirmed. He is having mood swings which are most likely due to the premed steroids. He is about 1/2 way of his chemo/radiation plan. I have placed a request for PA for switching his paclitaxel to Abraxane as he is also having steroid-induced hyperglycemia. C. He will receive 10 units of regular insulin today for an elevated random glucose of 317. D. Today's labs reviewed in detail and discussed with Mr. Eduardo and a copy was given to him. WBC 3.1, hemoglobin 9.9, platelets 1 53,000, ANC is 2730. Potassium 4.6 random glucose 317 creatinine 1.0 calcium 8.2 albumin 3.2. His LFTs are normal. TSH is 1.11. E. Proceed with daily hydration as warranted. He is having no signs of fluid overload and has limited oral intake. F. If his mood swings do not improve with omission of the steroids should be switched to Abraxane we may need to consider follow-up brain imaging. He did have a CT of the head on 04/20/2021 which did not report any metastatic disease. G. Mr. Eduardo was instructed to contact us in interim should questions or problems arise. Signed By: Armin Mccollum, AOCNP Shae Billy MD <<Signature on File>>
== END 2021-04-29 09:00 | disposition home or self-care (01) ==
LOC: ONCMED 05:42
PROVIDERS: Nurse Practitioner; Absent Provider Radiology Radiation Oncology; PCP Internal Medicine; Visit Provider Internal Medicine Hematology & Oncology
DX: Z51.11 Encounter for antineoplastic chemotherapy (principal); C16.0 Malignant neoplasm of cardia; R13.10 Dysphagia, unspecified; R63.4 Abnormal weight loss; G51.0 Bell's palsy; I10 Essential (primary) hypertension; E11.9 Type 2 diabetes mellitus without complications; Z86.718 Personal history of other venous thrombosis and embolism; Z79.01 Long term (current) use of anticoagulants; Z79.899 Other long term (current) drug therapy
CPT/HCPCS: 77387; 77412; 80053; 84443; 85025; 87635; 96360; 96367; 96372; 96375; 96413; 96417; 99214; J1100; J1200; J2469; J3490; J7030; J7040; J7050; J9045; J9267

== ENCOUNTER 2021-04-29 09:05 | Day surgery (SDC) | payer MEDICARE, SELFPAY ==
[2021-04-28 09:29] VITALS: BMI 23.6
--- NOTE | 2021-04-29 09:19 | P.ANESASSM_ITS ---
Pre-Anesthetic Assessment Pre-Anesthetic Assessment: Height/Weight: Height 1.75 m Weight 72.575 kg Preop Diagnosis: panendoscopy Proposed Procedure: Operation Date: 04/29/21 11:00 Proposed Procedures p EGD 80079 c15.9(Not Applicable) - Rommel Rosas MD Familial anesthetic complications: None Was Beta Tommie taken within 24 hours: N/A Was Clonidine taken within 24 hours: N/A Last intake: NPO > 8 hrs Social: Social History: No alcohol and No tobacco Exam: Pre-Anes Outpt Exam: alert, oriented x 3, clear to auscultation bilaterally and regular rate & rhythm Airway: Cervical ROM: WNL MP: 2 Dentition: Full Additional comments: esophageal cancer Pulmonary: Pulmonary: None reported CV/HEM: CV/HEM: HTN Comments: takes xarelto for GI: GI: GERD Metabolic: Metabolic: DM Anesthetic Plan: ASA status: 4 Anesthesia: MAC Risk of > 500 ml blood lo ss (7ml/kg in children): No Other Pertinent Information: Patient complaining that talking hurts his throat, somewhat noncompliant with interview. patient spitting up some phlegm, but no vomiting. However, he states he does vomit frequently though currently he says he doesn't feel there's anything that can come up d/t NPO status. PFSH Anesthesia PFSH: Medical History Angel's palsy Diabetes DVT (deep venous thrombosis) Hypertension Nephrolithiasis Surgical History H/O esophagogastroduodenoscopy (01/13/21) History of colonoscopy (01/13/21) Family History Denies family history of Anesthesia complication Bleeding disorder Social History Smoking and tobacco status: never smoked Data Anesthesia Cardiac Studies: No Data to Display
[2021-04-29 10:34] VITALS: BP 119/65; PULSE 116; RESP 18; TEMP 36.6; O2SAT 97
[2021-04-29] MEDS: sodium chloride 0.9% 1,000 ML 30 ML IV (11:09)
--- NOTE | 2021-04-29 11:41 | W.PM.OPSFHP ---
Same Day Surgery H&P Indication for Procedure/HPI DATE OF PROCEDURE: April 29, 2021 CHIEF COMPLAINT/INDICATIONFOR SURGICAL PROCEDURE: Esophageal cancer, no significant response to radiation as per Dr. Faust, reasses with EGD to see if patient needs to proceed to surgery PREOP DIAGNOSIS: panendoscopy PLANNED PROCEDRUE: Operation Date: 04/29/21 11:00 Proposed Procedures p EGD 18103 c15.9(Not Applicable) - Rommel Rosas MD Medications/Allergies* Home Medications Medication Instructions Recorded Confirmed Type allopurinol 300 mg tablet 300 mg PO BEDTIME 01/02/21 04/29/21 History atorvastatin 20 mg tablet 20 mg PO DAILY 01/02/21 04/29/21 History lisinopril 20 1 tab PO QAM 01/02/21 04/29/21 History mg-hydrochlorothiazide 25 mg tablet omeprazole 40 mg capsule,delayed 40 mg PO PRN 01/02/21 04/29/21 History release rivaroxaban 20 mg tablet 20 mg PO BEDTIME 01/02/21 04/29/21 History dexamethasone See Rx Instructions .ROUTE .COMPLEX 04/20/21 04/29/21 History insulin NPH isoph U-100 human 10 unit SUBCUT Q8H 04/20/21 04/29/21 History [Humulin N NPH Insulin KwikPen] insulin aspart U-100 [Novolog See Rx Instructions .ROUTE .COMPLEX 04/20/21 04/29/21 History Flexpen U-100 Insulin] insulin glargine [Lantus Solostar 20 unit SUBCUT BEDTIME 04/20/21 04/29/21 History U-100 Insulin] lorazepam 1 mg PO TID PRN 04/20/21 04/29/21 History ondansetron 4 mg PO Q8H PRN 04/20/21 04/29/21 History prochlorperazine maleate 10 mg PO Q4H PRN 04/20/21 04/29/21 History Allergies/Adverse Reactions Allergy/AdvReac Type Severity Reaction Status Date / Time No Known Allergies Allergy Verified 04/29/21 10:32 Current Medications: Generic Name Dose Route Start Last Admin Trade Name Freq PRN Reason Stop Dose Admin Sodium Chloride 1,000 mls @ 30 mls/hr 04/29/21 09:30 04/29/21 11:09 Sodium Chloride 0.9% IV 04/30/21 09:29 30 mls/hr .Q24H OREN Administration Pertinent History/Comorbid Conditions* Medical History (Updated 04/28/21 @ 00:01 by ) Angel's palsy Diabetes DVT (deep venous thrombosis) Hypertension Nephrolithiasis Surgical History (Updated 01/13/21 @ 11:11 by Rommel Rosas MD) H/O esophagogastroduodenoscopy (01/13/21) History of colonoscopy (01/13/21) Family History (Updated 01/02/21 @ 08:54 by Tasneem Reyes RN) Denies family history of Anesthesia complication Bleeding disorder Social History Smoking and tobacco status: never smoked Pertinent Exam Findings alert, oriented x 3 and operative site marked Recommendations Surgery/Procedure today Coding Level of Care Code Acute 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
[2021-04-29 12:47] VITALS: BP 110/83; PULSE 110; RESP 16; TEMP 36.8; O2SAT 97
--- NOTE | 2021-04-29 12:52 | ANE.PACU2 ---
Inpatient post-anesthesia follow up: Airway intact: Yes Vital signs: Temperature 97.9 F Pulse Rate 116 Respiratory Rate 18 Blood Pressure 119/65 Pulse Oximetry 97 Oxygen Delivery Me thod Room Air Oxygen Flow Rate Fraction of Inspir ed Oxygen Hydration adequate: Yes Nausea and vomiting: No Pain level: 1 Mental status: Baseline
[2021-04-29 13:09] VITALS: BP 101/64; PULSE 109; RESP 16; O2SAT 100
--- NOTE | 2021-04-30 16:20 | PC.NURSE ---
Patient was coming into infusion suite for IV hydration but he cancelled due to needing to be in outpatient procedure. 04-29-2021
== END 2021-04-29 13:30 | disposition home or self-care (01) ==
PROVIDERS: PCP Internal Medicine; Visit Provider Surgery
PROC: 0DJ08ZZ Inspection of Upper Intestinal Tract, Via Natural or Artificial Opening Endoscopic (ICD-10-PCS; CPT 43235; principal; 2021-04-29 11:00)
DX: C15.9 Malignant neoplasm of esophagus, unspecified (principal); E11.9 Type 2 diabetes mellitus without complications; Z79.4 Long term (current) use of insulin; Z86.718 Personal history of other venous thrombosis and embolism; I10 Essential (primary) hypertension; Z79.01 Long term (current) use of anticoagulants; K21.9 Gastro-esophageal reflux disease without esophagitis
CPT/HCPCS: 43235; 96360; 96361; J2704; J7030

== ENCOUNTER 2021-04-30 06:46 | Outpatient (RCR) | payer MEDICARE, SELFPAY ==
[2021-04-30] MEDS: sodium chloride 0.9% 1,000 ML 999 ML IV (09:52)
[2021-04-30 10:17] LABS: Basophils % 0.6 %; Hematocrit 27.5 % (42.0-52.0); Hemoglobin 8.9 g/dL (11.7-16.6); Lymphocytes # 0.2 10^3/uL (0.8-4.8); Lymphocytes % 8.6 %; Mean Corpuscular HGB Conc 32.4 g/dL (30.0-36.0); Mean Corpuscular Hemoglobin 30.7 pg (28.0-34.0); Mean Corpuscular Volume 94.8 fL (80-94); Monocytes % 1.7 %; Neutrophils # 1.55 10^3/uL (1.8-7.7); Neutrophils % 88.5 %; Nucleated Red Blood Cells % 0 %; Platelet Count 128 10^3/cmm (130-400); Red Cell Distribution Width 15.3 % (12.1-15.1); White Blood Count 1.8 10^3/uL (4.0-10.0)
[2021-04-30 10:43] LABS: Alanine Aminotransferase 12 U/L (0-41); Alkaline Phosphatase 79 IU/L (40-130); Anion Gap 12.6 (5-19); Aspartate Amino Transferase 13 U/L (0-40); Blood Urea Nitrogen 25 mg/dL (8-23); Calcium 8.1 mg/dL (8.5-10.5); Carbon Dioxide 21 mmol/L (22-29); Chloride 114 mmol/L (98-107); Globulin 2.5 g/dL (1.3-4.6); Glomerular Filtration Rate 84.2 mL/min (90-130); Glucose 269 mg/dL (65-115); Osmolality Calculated 310 mOsm/kg (285-295); Potassium 4.6 mmol/L (3.5-5.1); Sodium 143 mmol/L (136-145); Total Bilirubin 0.4 mg/dL (0.15-1.2); Total Protein 5.5 g/dL (6.6-8.7)
--- NOTE | 2021-05-11 20:58 | ONC FU_ITS ---
[facility] Patient Note Patient: Reza Eduardo Unit #: [id number]: 1955 Dictated By: Vonda MccollumDate of Visit: Apr 30, 2021 Onc MED Follow-Up/Prog Note Chief Complaint: Dysphagia/weight loss due to Esophageal cancer History of Present Illness: Mr. Eduardo is a 65-year-old gentleman with history of progressive dysphagia for the last few months and significant weight loss. He also had intermittent nausea/ vomiting. He was referred to surgery for evaluation. On January 13, 2021, he underwent EGD and colonoscopy. The EGD confirmed at 35 cm there was a mass noted which was not completely obstructing but was bleeding. 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 There was food material and debris within the dilated esophagus. No nodules, masses or effusion seen. No significant mediastinal or axillary lymphadenopathy seen, liver was normal. He underwent PET/CT scan on March 18, 2021 which showed increased FDG activity associated with massive GE junction with SUV of 5.8. No evidence of metastatic disease or other abnormality. Mr Eduardo had a J-tube placement for nutrition on February 27, 2021. Past medical history significant for Angel's palsy, diabetes, DVT, hypertension, nephrolithiasis Mr Eduardo was referred to Dr Billy for further plan of care. He was offered treatment with combined therapy with radiation and weekly Carboplatin/Taxol. He began his first cycle of combined chemoradiation with weekly carbo/Taxol on April 02, 2021. Mr Eduardo is here today for followup and is due for week 5 Carboplatin/Taxol. Mr. Eduardo has no new concerns today. He denies any fever or chills. He denies any mouth sores, sore throat or difficulty swallowing. He states that hydration continues to make him feel better overall. He has been able to do some gardening and slight yard work. He states he tires easily was able to do something . He is utilizing his PEG tube and tolerating this relatively well. He denies any new shortness of breath or cough. She denies any hemoptysis. He has had some intermittent nausea but states overall it seems to be better. He feels the hydration is helping. He denies any diarrhea. He has occasional constipation but that is controlled with stool softeners. He denies any lower extremity edema he denies any neuropathy symptoms. He states he has had some tingling in his fingers but states that is chronic and is no worse than what has been. He denies any vision or hearing changes. He has had no headaches. He denies any episodes of confusion. His ECOG is 1. Mr. Eduardo had follow-up endoscopy per Dr. Rosas on 04/29/2021. He reported a near obstructing esophageal cancer at [address] Akers was able to pass his scope. The malignancy has definitely progressed compared to the prior EGD. His radiation therapy has been placed on hold and therefore his chemotherapy will be held as well. Past Medical History: Angel's Palsy DVT Hypertension Type II diabetes Past Surgical History: EGD per Dr. Rosas [facility] in 2020 Colonoscopy in 2020 Cataract excision in 2013 Allergies: No Known Allergies. Medications: Allopurinol 1 Tablet (of 300 mg) Oral daily Atorvastatin Calcium 1 Tablet (of 20 mg) Oral daily HumuLIN N KwikPen 10 Units (of 100 Units/mL) Subcutaneous q 8 hours Lantus SoloStar 20 Units (of 100 Units/mL) Subcutaneous at bedtime Lisinopril-hydroCHLOROthiazide 1 Tablet (of 20-25 mg) Oral daily LORazepam 1 Tablet (of 1 mg) Oral t.i.d. PRN NovoLOG FlexPen 2 Units (of 100 Units/mL) Subcutaneous b.i.d. Ondansetron HCl 1 Tablet (of 4 mg) Oral q 8 hours PRN Xarelto 1 Tablet (of 20 mg) Oral daily Family History: Mr. Eduardo's mother at age 81. Mr. Eduardo's father at age 56: myocardial infarction. Mr. Eduardo has 2 sisters: 2 . Social History: Mr. Eduardo is . Mr. Eduardo has never smoked. He has no history of drinking. Review Of Symptoms: <See Above> Vital Signs: ,1 - No physically strenuous activity, but ambulatory and able to carry out light or sedentary work (e.g. office work, light house work). (ECOG) Physical Examination: Constitutional Alert, oriented, no acute distress. Skin pink, warm and dry. Head Normocephalic; atraumatic. Eyes Conjunctivae and sclerae are clear and without icterus. Pupils are reactive and equal. Hematologic/Lymphatic No petechiae or purpura. No tender or palpable lymph nodes in the cervical or supraclavicular areas. Respiratory Lungs are clear to auscultation without rhonchi or wheezing. Cardiovascular Regular rate and rhythm of heart without murmurs,clicks, gallops or rubs. Back/Spine Non-tender to palpation. Extremities No visible deformities, no cyanosis, clubbing or edema. Musculoskeletal No tenderness or swelling, normal range of motion without obvious weakness. Integumentary No rashes or lesions. Neurologic No sensory or motor deficits, normal cerebellar function, normal gait. Psychiatric Alert and oriented times three. Coherent speech. Verbalizes understanding of our discussions today. Laboratory:Test performed on Apr 30, 2021 09:52 Sodium 143 mmol/L Potassium 4.6 mmol/L Chloride 114 mmol/L CO2 21 mmol/L Anion Gap 12.6 BUN 25 mg/dL Creatinine 0.9 mg/dL Cr Clearance (Est) 82.0700 mL/min eGFR 84.2 mL/min Glucose 269 mg/dL Osmolality - Calculated 310 mOsm/kg Calcium 8.1 mg/dL Protein, Total 5.5 g/dL Albumin 3.0 g/dL Globulin 2.5 g/dL Bilirubin, Total 0.4 mg/dL ALT (SGPT) 12 U/L AST (SGOT) 13 U/L Alkaline Phosphatase 79 IU/L WBC 1.8 10 3/uL RBC 2.90 10 6/uL HGB 8.9 g/dL HCT 27.5 % MCV 94.8 fL MCH 30.7 pg MCHC 32.4 g/dL RDW 15.3 % Platelet Count 128 10 3/cmm MPV 10.0 fL Neutrophils 1.55 10 3/uL Lymphocytes 0.2 10 3/uL Monocytes 0.0 10 3/uL Eosinophils 0.0 10 3/uL Basophils 0.0 10 3/uL Neutrophil % 88.5 % Lymphocyte % 8.6 % Monocyte % 1.7 % Eosinophil % 0.0 % Basophils % 0.6 % NRBC % 0 % Test performed on Apr 23, 2021 09:36 TSH 1.11 uIU/mL Impression: 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 Probable soft tissue mass at the gastroesophageal junction. No other abnormality seen in abdomen or pelvis CT PET scan done on March 18, 2021 shows increased FDG activity associated with mass at the GE junction with SUV of 5.8 and no evidence of metastatic disease or other abnormality Status post J-tube placement on March 05, 2021 Dysphagia/weight loss due to above History of DVT, on Xarelto History of Angel's palsy, History of diabetes, History of hypertension. Plan/Problems Addressed at this Visit: Adenocarcinoma of the gastroesophageal junction. He began combined therapy with daily radiation and carboplatin Taxol on April 02, 2021. He has required interim hydration and antiemetics but otherwise is tolerating treatment well. A. We Plan to stop his current chemotherapy plan as he has evidence of disease progression despite treatment with his EGD from 04/29/2021. B. Today's labs reviewed in detail discussed with Mr. Eduardo and a copy was given to him. WBC 1.8, hemoglobin 8.9, platelets 128,000 and ANC is 1550. Potassium 4.6 random glucose 269 and creatinine 0.9. His LFTs were normal. C. Mr. Eduardo has now been referred to Dr. Mc in [place] for further management of his near obstructing esophageal mass. Per conversation with Dr. Billy and Dr. Faust, Mr. Eduardo is expected to see Dr. Mc within the next few days and plan of care to be determined at that time. If he has not seen in the next 2 to 3 days. I would like to repeat his labs to make sure that his anemia and mild neutropenia is correcting off treatment. D. He will continue supportive care in the interim but we will plan for follow-up after he sees Dr. Mc and his plan of care is determined. E. Mr. Eduardo was instructed to contact us in interim should questions or problems arise. Signed By: Vonda Mccollum-, [facility] Shae Billy MD <<Signature on File>>
== END 2021-05-06 23:59 | disposition home or self-care (01) ==
LOC: ONCMED 06:46
PROVIDERS: Absent Provider Radiology Radiation Oncology; PCP Internal Medicine; Visit Provider Nurse Practitioner
DX: C16.0 Malignant neoplasm of cardia (principal); G61.0 Guillain-Barre syndrome; I10 Essential (primary) hypertension; E11.9 Type 2 diabetes mellitus without complications; R13.10 Dysphagia, unspecified; R63.4 Abnormal weight loss; Z86.718 Personal history of other venous thrombosis and embolism; Z79.01 Long term (current) use of anticoagulants; Z79.899 Other long term (current) drug therapy
CPT/HCPCS: 36415; 77336; 80053; 85025; 96360; 99214; J7030

== ENCOUNTER 2021-06-09 09:04 | Outpatient (CLI) | payer MEDICARE, SELFPAY ==
--- NOTE | 2021-06-09 09:30 | MR_ITS ---
WS: [id number] MRI ABDOMEN with and without CONTRAST. COMPARISON: PET CT 03/18/[address] 02/06/2021 Multiplanar, multisequence imaging is performed with and without contrast. History: Abnormal findings esophagus and liver. This examination is overall limited due to patient difficulty following instructions and breathing ar tifact. Previously described soft tissue mass at the GE junction is significantly smaller in appearance. Ther e is still some soft tissue thickening within increased T2 signal at the GE junction measuring 14 mm in diameter. There is continued mild obstruction of the lumen but too a lesser extent as compared to 02/06/2021. The debris noted within the distal esophagus has markedly improved. There is only some very mild enhancement at the GE junction. Normal appearance of the liver and gallbladder. Bilateral renal cysts. The largest cyst in the upper pole of the RIGHT kidney measures 5.3 x 4.3 cm. There is mild perinephric stranding. The gallbladder is negative. No ascites identified. No metastatic lesions are identified within the liver. No mass is identified within the adrenal gland s. PEG tube is noted in good position within the stomach. MR/MR abdomen wo/w con* [id number] IMPRESSION: 1. Quality of this examination is significantly limited by breathing motion ar tifact and inability to follow commands. 2. Previously described mass at the GE junction has significantly decreased in size. Minimal signal abnormality measures approximately 14 mm at the GE juncti on. 3. Mild narrowing of the distal esophageal lumen but improved. 4. PEG tube is noted. 5. No adrenal or hepatic mass seen.
[2021-06-09] MEDS: gadobenate dimeglumine 20 mL vial IV (11:12)
== END 2021-06-09 09:05 | disposition home or self-care (01) ==
PROVIDERS: PCP Internal Medicine; Visit Provider Nurse Practitioner
DX: R93.2 Abnormal findings on diagnostic imaging of liver and biliary tract (principal); C15.9 Malignant neoplasm of esophagus, unspecified
CPT/HCPCS: 74183; A9577

== ENCOUNTER 2021-12-05 15:21 | Emergency (ER) | payer MEDICARE, SELFPAY ==
[2021-12-05 15:41] VITALS: BP 202/88; PULSE 90; RESP 16; TEMP 36.4; O2SAT 98
--- NOTE | 2021-12-05 16:04 | ED_ITS ---
Documented by User: Jose Garcia MD 12/06/21 19:18 HPI - Abdominal Pain General: Chief Complaint: Abdominal Pain Stated Complaint: Feeding tube fell out, things falling out Time Seen by Provider: 12/05/21 16:04 History of Present Illness: Mr. Eduardo is a 66-year-old gentleman with significant past medical history of esophageal cancer and at what time, prior to completion of therapy, G-tube dependence who presents the emergency department due to dislodgment of G-tube. G-tube was placed in February 2021. He reports that he was eating earlier today and all of a sudden the tube fell out. He did have some food contents come out of the G-tube site. Denies associated abdominal pain. He has otherwise been at his health. There is no intensity of symptoms, exacerbating, provoking, or alleviating factors identified. There is no course or quality. This happened approximately 1 hour ago. Upon inspection of dislodged tube this may be a tube with a component that goes past the pylorus however it does not appear full-length GJ tube. The patient does use it for nighttime nutrition/fluid which is trickled in. He reports good p.o. intake and weight gain and tolerates slow eating well. Pertinent past history: other Onset (ago): hour(s) Associated Symptoms: Reports no associated symptoms Review of Systems General: Reports: 10 or more systems reviewed and unremarkable except in HPI and below PFSH ED PFSH: Medical History Angel's palsy Diabetes DVT (deep venous thrombosis) Esophageal cancer Hypertension Nephrolithiasis Surgical History H/O esophagogastroduodenoscopy (04/29/21) History of colonoscopy (01/13/21) Family History Denies family history of Anesthesia complication Bleeding disorder Social History Smoking and tobacco status: never smoked Physical Exam Const: COMMON NORMALS: alert GENERAL APPEARANCE: cooperative and well developed HENMT: COMMON NORMALS: normocephalic and atraumatic HEAD & SCALP: normocephalic and atraumatic Eye: COMMON NORMALS: conjunctivae normal CONJUNCTIVA: Yes conjunctivae normal SCLERA: sclerae normal Neck/C-Spine: COMMON NORMALS: supple GENERAL: Yes trachea midline Resp: COMMON NORMALS: normal respiratory effort EFFORT & INSPECTION: Yes able to speak in complete sentences Cardio: COMMON NORMALS: regular rate and regular rhythm RATE: regular rate RHYTHM: regular rhythm GI: COMMON NORMALS: Soft to palpation PALPATION: Yes Soft to palpation and No Tenderness to palpation present (GI) PERCUSSION: normal to percussion OTHER: Gastrostomy site appears normal, no bleeding or evidence of cellulitis Extremity: GENERAL: Yes normal exam except as noted and No edema Neuro: COMMON NORMALS: moves all extremities SENSORIUM/ORIENTATION: Yes alert and No Orientation impaired Psych: COMMON NORMALS: mental status grossly normal and Normal thought process present THOUGHT PROCESS: Normal thought process present Course ED course: - Patient was seen and evaluated by me at bedside -Vital signs obtained - Initial evaluation notable for benign abdominal exam. No evidence of ostomy cellulitis or other abnormality, does appear to be closing mildly. - There was some delay in obtaining G-tube due to difficulty locating and sup ply. The ostomy was somewhat more closed than typical however was easily dilated using red rubber straight cath of increasing [place]ar[place]uan size up to 16 at which point he became more difficult. I did attempt to place an 18 [place]ar[place]uan G- tube however this met resistance and this was aborted. Downsized to 16 [place]ar[place]uan G-tube filled with 5 cc of sterile water. Patient tolerated procedure well. No evidence of hemorrhage. Tube secured. - Patient care handed off to overnight ED physician pending verification on x- ray. Note: Click bubbles or prepopulated stubbs in note writing are used for assistance with data collection and billing and are inherently more limited than narrative and other text portions of this note. Please use narrative for additional clinical history and defer to narrative/free test for any case of contradictory information. If information appears in only free text or click bubble it should be considered present or absent as reported. Please contact note freelance copywriter for clarifications of clinical information or contradictory information. MDM is a brief summary, contradictory or erroneous seeming information should be clarified and full note should be reviewed. Vital Signs: Vital signs: Vital Signs Temperature 97.5 F L 12/05/21 15:41 Pulse Rate 79 12/05/21 20:11 Respiratory Rate 16 12/05/21 20:11 Blood Pressure 202/88 12/05/21 15:41 Pulse Oximetry 99 12/05/21 20:11 MDM - Abdominal Pain Medical Decision Making 66-year-old gentleman with history of esophageal cancer and history of reported G-tube presenting with dislodgment of G-tube. Attempted to place 18 [place] like previous have been however unable and had to downsize a 16 [place]uan G-tube. Patient tolerated procedure well. Handed off to overnight ED physician pending x-ray for verification of placement. Received in checkout from previous physician. Awaiting x-ray to confirm placement of G-tube. G-tube is in the proper position with no evidence of extravasation of contrast on x-ray. Patient is allowed discharge. Medical Records I reviewed the patient's medical records. Lab Data I reviewed the patient's lab results. Labs/Radiology: Radiology Impressions Abdomen X-Ray 12/05/21 18:41 IMPRESSION: No evidence for extravasation of contrast. Discharge Plan Discharge Patient Disposition: Home Clinical Impression: Gastrostomy tube dysfunction Condition: Stable Prescriptions: No Action omeprazole 40 mg capsule,delayed release(DR/EC) 40 mg PO PRN 0RF lisinopril-hydrochlorothiazide 20-25 mg tablet 1 tab PO QAM 0RF atorvastatin 20 mg tablet 20 mg PO DAILY 0RF Xarelto 20 mg tablet 20 mg PO BEDTIME 0RF Hold Instructions: Resume on 01/15/21. allopurinol 300 mg tablet 300 mg PO BEDTIME 0RF prochlorperazine maleate 10 mg tablet 10 mg PO Q4H PRN (Reason: Nausea) 0RF dexamethasone 4 mg tablet See Rx Instructions .ROUTE .COMPLEX 0RF Rx Instructions: take 5 tabs po 12 hours and 6 hours prior to each chemo treatment lorazepam 1 mg tablet 1 mg PO TID PRN (Reason: Nausea) 0RF ondansetron 4 mg tablet,disintegrating 4 mg PO Q8H PRN (Reason: Nausea And Vomiting) 0RF Humulin N NPH Insulin KwikPen 100 unit/mL (3 mL) insulin pen 10 unit SUBCUT Q8H 0RF insulin aspart U-100 [Novolog Flexpen U-100 Insulin] 100 unit/mL (3 mL) insulin pen See Rx Instructions .ROUTE .COMPLEX 0RF Rx Instructions: inject 2 unit subcutaneously for every 50 above 150 Lantus Solostar U-100 Insulin 100 unit/mL (3 mL) insulin pen 20 unit SUBCUT BEDTIME 0RF Discharge Orders: Discharge ED (Routine); Ordered 12/05/21 Ordered By: Alfredo Lyle Referrals: Shanon Toth MD [Primary Care Provider] - 1-3 days Discharge Diet: Usual diet Discharge Activity: Resume usual activity Patient Instructions: How to Use and Care for Your PEG Tube (ED), PEG Tube Insertion (DC) Activity Restrictions/Additional Instructions: Thank you for visiting the emergency department. You were seen and evaluated for your G-tube becoming dislodged. In examining the dislodged G-tube I am unsure of exactly what type of G-tube this is. I replaced this with a device that does not have a longer arm in order to preserve the tract. I did have to downsize the tube as I could not insert the 18 [place]. As long as you can safely stay hydrated with oral intake I recommend contacting your surgeon in [place] on Tuesday for further instructions. There was some mild soft tissue trauma associated with reinsertion of the closing tract. Given that you are on Xarelto there is likely to be some continued oozing. Watch for signs of significant bleeding. Please follow-up with your primary care provider. Return to the emergency department for abdominal pain or anything else that you are concerned about and feel needs emergency department evaluation. Coding Level of Care Code ED Title Camera Operator for Chg Fwd Exam Comprehensive Documented by User: Alfredo Lyle, 12/05/21 20:07 HPI - Abdominal Pain General: Chief Complaint: Abdominal Pain Stated Complaint: Feeding tube fell out, things falling out Time Seen by Provider: 12/05/21 16:04 [facility] ED PFSH: Medical History Angel's palsy Diabetes DVT (deep venous thrombosis) Esophageal cancer Hypertension Nephrolithiasis Surgical History H/O esophagogastroduodenoscopy (04/29/21) History of colonoscopy (01/13/21) Family History Denies family history of Anesthesia complication Bleeding disorder Social History Smoking and tobacco status: never smoked Course Vital Signs: Vital signs: Vital Signs Temperature 97.5 F L 12/05/21 15:41 Pulse Rate 79 12/05/21 20:11 Respiratory Rate 16 12/05/21 20:11 Blood Pressure 202/88 12/05/21 15:41 Pulse Oximetry 99 12/05/21 20:11 MDM - Abdominal Pain Medical Decision Making Received in checkout from previous physician. Awaiting x-ray to confirm placement of G-tube. G-tube is in the proper position with no evidence of extravasation of contrast on x-ray. Patient is allowed discharge. Lab Data Labs/Radiology: Radiology Impressions Abdomen X-Ray 12/05/21 18:41 IMPRESSION: No evidence for extravasation of contrast. Discharge Plan Discharge Patient Disposition: Home Clinical Impression: Gastrostomy tube dysfunction Condition: Stable Prescriptions: No Action omeprazole 40 mg capsule,delayed release(DR/EC) 40 mg PO PRN 0RF lisinopril-hydrochlorothiazide 20-25 mg tablet 1 tab PO QAM 0RF atorvastatin 20 mg tablet 20 mg PO DAILY 0RF Xarelto 20 mg tablet 20 mg PO BEDTIME 0RF Hold Instructions: Resume on 01/15/21. allopurinol 300 mg tablet 300 mg PO BEDTIME 0RF prochlorperazine maleate 10 mg tablet 10 mg PO Q4H PRN (Reason: Nausea) 0RF dexamethasone 4 mg tablet See Rx Instructions .ROUTE .COMPLEX 0RF Rx Instructions: take 5 tabs po 12 hours and 6 hours prior to each chemo treatment lorazepam 1 mg tablet 1 mg PO TID PRN (Reason: Nausea) 0RF ondansetron 4 mg tablet,disintegrating 4 mg PO Q8H PRN (Reason: Nausea And Vomiting) 0RF Humulin N NPH Insulin KwikPen 100 unit/mL (3 mL) insulin pen 10 unit SUBCUT Q8H 0RF insulin aspart U-100 [Novolog Flexpen U-100 Insulin] 100 unit/mL (3 mL) insulin pen See Rx Instructions .ROUTE .COMPLEX 0RF Rx Instructions: inject 2 unit subcutaneously for every 50 above 150 Lantus Solostar U-100 Insulin 100 unit/mL (3 mL) insulin pen 20 unit SUBCUT BEDTIME 0RF Discharge Orders: Discharge ED (Routine); Ordered 12/05/21 Ordered By: Alfredo Lyle Referrals: Shanon Toth MD [Primary Care Provider] - 1-3 days Discharge Diet: Usual diet Discharge Activity: Resume usual activity Patient Instructions: How to Use and Care for Your PEG Tube (ED), PEG Tube Insertion (DC) Activity Restrictions/Additional Instructions: Thank you for visiting the emergency department. You were seen and evaluated for your G-tube becoming dislodged. In examining the dislodged G-tube I am unsure of exactly what type of G-tube this is. I replaced this with a device that does not have a longer arm in order to preserve the tract. I did have to downsize the tube as I could not insert the 18 [place]. As long as you can safely stay hydrated with oral intake I recommend contacting your surgeon in [place] on Tuesday for further instructions. There was some mild soft tissue trauma associated with reinsertion of the closing tract. Given that you are on Xarelto there is likely to be some continued oozing. Watch for signs of significant bleeding. Please follow-up with your primary care provider. Return to the emergency department for abdominal pain or anything else that you are concerned about and feel needs emergency department evaluation. Coding Level of Care Code ED Title Camera Operator for Perry Fwd Exam Comprehensive
--- NOTE | 2021-12-05 18:41 | XRR_ITS ---
PROCEDURE INFORMATION: Exam: XR Abdomen Exam date and time: 12/05/2021 6:41 PM Age: 66 years old Clinical indication: Screening exam; Other: Gastrograffin for g tube replacement; Prior surgery; Surgery date: 6+ months; Surgery type: Gtube TECHNIQUE: Imaging protocol: XR of the abdomen. Views: 2 Views. Upright and supine views. COMPARISON: MR abdomen wo/w con* [id number] 06/09/2021 10:03 AM FINDINGS: Contrast was injected through patient's jejunostomy tube. Contrast is seen within the small bowel. No evidence for extravasation. XR/XR abdomen min 2V [id number] IMPRESSION: No evidence for extravasation of contrast.
[2021-12-05 20:11] VITALS: PULSE 79; RESP 16; O2SAT 99
== END 2021-12-05 20:11 | disposition home or self-care (01) ==
PROVIDERS: Emergency Provider Emergency Medicine; PCP Internal Medicine
DX: K94.23 Gastrostomy malfunction (principal); Z79.4 Long term (current) use of insulin; E11.9 Type 2 diabetes mellitus without complications; I10 Essential (primary) hypertension; Z85.01 Personal history of malignant neoplasm of esophagus
CPT/HCPCS: 43762; 74019; 99281

== ENCOUNTER 2022-04-01 02:45 | Emergency (ER) | payer MEDICARE, SELFPAY ==
[2022-04-01 02:50] VITALS: BP 143/70; PULSE 70; RESP 18; TEMP 36.8; O2SAT 99; BMI 24.3
[2022-04-01 03:00] VITALS: BP 136/67; PULSE 67; RESP 18; O2SAT 96
--- NOTE | 2022-04-01 03:01 | ED_ITS ---
HPI - General Adult General: Chief complaint: General Medical Stated complaint: Feeding Tube Came Out Time Seen by Provider: 04/01/22 02:55 Source: patient Mode of arrival: ambulatory Limitations: no limitations History of Present Illness: 66-year-old male who has a history of feeding tube he states he went to bed at around midnight and woke up this morning at 230 and his feeding tube had been displaced. He denies any pain denies any other complaints denies any worsening improving factors. Associated symptoms: Deny chest pain, dyspnea, headache(s), nausea, rash or vomiting Review of Systems Const: Denies: fever(s), chills, body aches or change in appetite Eyes: Denies: blurry vision or eye discomfort ENMT: Denies: throat pain or dental pain Card: Denies: chest pain Resp: Denies: dyspnea GI: Denies: abdominal pain, nausea, vomiting or diarrhea : Denies: dysuria Musc: Denies: neck pain or back pain Skin/Breast: Denies: rash Neuro: Denies: headache(s) Psych: Denies: depression Hunter/Lymph: Denies: easy bruising All/Imm: Denies: urticaria PFSH ED PFSH: Medical History Angel's palsy Diabetes DVT (deep venous thrombosis) Esophageal cancer Hypertension Nephrolithiasis Surgical History H/O esophagogastroduodenoscopy (04/29/21) History of colonoscopy (01/13/21) Family History Denies family history of Anesthesia complication Bleeding disorder Social History Smoking and tobacco status: never smoked Physical Exam Const: COMMON NORMALS: no acute distress, patient oriented x3 and healthy appearing HENMT: COMMON NORMALS: normocephalic and atraumatic HEAD & SCALP: normocephalic and atraumatic Eye: COMMON NORMALS: Equal, round and reactive pupils present and EOMs intact bilaterally PUPIL: Yes Equal, round and reactive pupils present Neck/C-Spine: COMMON NORMALS: full ROM and supple Chest: COMMONS NORMALS: normal inspection of the chest and normal palpation of entire chest wall Resp: COMMON NORMALS: normal respiratory effort, No retractions, No use of accessory muscles and clear to auscultation bilaterally AUSCULTATION: clear to auscultation bilaterally Cardio: COMMON NORMALS: regular rate, regular rhythm and No murmurs present (Cardio) RATE: regular rate RHYTHM: regular rhythm GI: COMMON NORMALS: Normal to inspection, nondistended, normoactive bowel sounds present, Soft to palpation, non-tender and no masses PALPATION: Yes Soft to palpation OTHER: Area left lower quadrant her feeding tube has been dislodged Extremity: COMMON NORMALS: normal to inspection and full ROM Neuro: COMMON NORMALS: patient oriented x3, moves all extremities and no focal motor deficits Psych: COMMON NORMALS: mental status grossly normal, Normal thought process present and cooperative THOUGHT PROCESS: Normal thought process present Skin: COMMON NORMALS: no rashes or lesions noted and no wounds GENERAL SKIN EXAM: no rashes or lesions noted Course Vital Signs: Vital signs: Vital Signs Temperature 98.2 F 04/01/22 02:50 Pulse Rate 67 04/01/22 03:00 Respiratory Rate 18 04/01/22 03:00 Blood Pressure 136/67 04/01/22 03:00 Pulse Oximetry 96 04/01/22 03:00 MDM - General Adult Medical Decision Making Patient presents here with feeding tube dislodgment I was able to replace his feeding tube KUB was shot with contrast is in place he is stable for discharge return if worsening. Discharge Plan Discharge Patient Disposition: Home Clinical Impression: Encounter for feeding tube placement Condition: Stable Prescriptions: No Action omeprazole 40 mg capsule,delayed release(DR/EC) 40 mg PO PRN 0RF lisinopril-hydrochlorothiazide 20-25 mg tablet 1 tab PO QAM 0RF atorvastatin 20 mg tablet 20 mg PO DAILY 0RF Xarelto 20 mg tablet 20 mg PO BEDTIME 0RF Hold Instructions: Resume on 01/15/21. allopurinol 300 mg tablet 300 mg PO BEDTIME 0RF prochlorperazine maleate 10 mg tablet 10 mg PO Q4H PRN (Reason: Nausea) 0RF dexamethasone 4 mg tablet See Rx Instructions .ROUTE .COMPLEX 0RF Rx Instructions: take 5 tabs po 12 hours and 6 hours prior to each chemo treatment lorazepam 1 mg tablet 1 mg PO TID PRN (Reason: Nausea) 0RF ondansetron 4 mg tablet,disintegrating 4 mg PO Q8H PRN (Reason: Nausea And Vomiting) 0RF Humulin N NPH Insulin KwikPen 100 unit/mL (3 mL) insulin pen 10 unit SUBCUT Q8H 0RF insulin aspart U-100 [Novolog Flexpen U-100 Insulin] 100 unit/mL (3 mL) insulin pen See Rx Instructions .ROUTE .COMPLEX 0RF Rx Instructions: inject 2 unit subcutaneously for every 50 above 150 Lantus Solostar U-100 Insulin 100 unit/mL (3 mL) insulin pen 20 unit SUBCUT BEDTIME 0RF Discharge Orders: Discharge ED (Routine); Ordered 04/01/22 Ordered By: Norma Hawkins Referrals: Shanon Toth MD [Primary Care Provider] - 1-3 days Discharge Diet: Advance as tolerated Discharge Activity: Resume usual activity Patient Instructions: How to Use and Care for Your PEG Tube (ED) Coding Level of Care Code ED Answering Service Telephone Operator for Chg Fwd Exam Comprehensive
--- NOTE | 2022-04-01 03:12 | XRR_ITS ---
PROCEDURE INFORMATION: Exam: XR Abdomen Exam date and time: 04/01/2022 3:17 AM Age: 66 years old Clinical indication: Device placement; Gi device; Gastrostomy, other; Prior surgery; Patient HX: Verify placement of new gastrostomy tube. 30 cc of gastrograffin administered prior to exposure. ; Additional info: Feeding tube placement, gasrogaffin TECHNIQUE: Imaging protocol: XR of the abdomen. Views: Frontal supine view of the abdomen. 1 View. COMPARISON: CR XR abdomen min 2V [id number] 12/05/2021 6:57 PM FINDINGS: Tubes, catheters and devices: A percutaneous feeding tube is present in the left mid to lower abdomen. Contrast was reportedly injected through the tube prior to the image. The tip of the tube appears to lie within a jejunal small bowel loop. Contrast fills portions of small bowel in the mid and left abdomen. No definite evidence for extravasation of contrast. The stomach does not appear opacified with contrast. I presume the tube is not located in the stomach, and represents a percutaneous jejunostomy tube. Gastrointestinal tract: No dilated bowel to strongly suggest obstruction. Moderate amount of stool in the right colon. Bones/joints: No significant acute finding. Other findings: No definite abnormal masses or specific abnormal calcifications. XR/XR KUB [id number] IMPRESSION: 1. Percutaneous feeding tube placement as discussed above. 2. Other details discussed above.
[2022-04-01] MEDS: diatrizoate meglumine 120 mL Sol PO (03:24)
[2022-04-01 03:40] VITALS: BP 130/72; PULSE 65; RESP 18; O2SAT 99
--- NOTE | 2022-04-08 00:33 | ED_ITS ---
HPI - General Adult General: Chief complaint: General Medical Stated complaint: Feeding Tube Came Out Time Seen by Provider: 04/01/22 02:55 Source: patient Mode of arrival: ambulatory Limitations: no limitations History of Present Illness: . [facility] ED PFSH: Medical History Angel's palsy Diabetes DVT (deep venous thrombosis) Esophageal cancer Hypertension Nephrolithiasis Surgical History H/O esophagogastroduodenoscopy (04/29/21) History of colonoscopy (01/13/21) Family History Denies family history of Anesthesia complication Bleeding disorder Social History Smoking and tobacco status: never smoked Procedures Feeding Tube Replacement Type of Tube: G-J Tube Insertion Site Prior to Procedure: clean Tube Used for Reinsertion: other Balloon size (mL): 5 Verification of Placement: KUB and gastrografin injection Tube Secured by: tape/dressing Patient Tolerated Procedure: well Course Vital Signs: Vital signs: Vital Signs Temperature 98.2 F 04/01/22 02:50 Pulse Rate 65 04/01/22 03:40 Respiratory Rate 18 04/01/22 03:40 Blood Pressure 130/72 04/01/22 03:40 Pulse Oximetry 99 04/01/22 03:40 MDM - General Adult Medical Decision Making Procedure note for the feeding tube replacement when I saw patient on 526 Lab Data Radiology Impressions KUB X-Ray 04/01/22 03:12 IMPRESSION: 1. Percutaneous feeding tube placement as discussed above. 2. Other details discussed above. Discharge Plan Discharge Patient Disposition: Home Clinical Impression: Encounter for feeding tube placement Condition: Stable Prescriptions: No Action omeprazole 40 mg capsule,delayed release(DR/EC) 40 mg PO PRN 0RF lisinopril-hydrochlorothiazide 20-25 mg tablet 1 tab PO QAM 0RF atorvastatin 20 mg tablet 20 mg PO DAILY 0RF Xarelto 20 mg tablet 20 mg PO BEDTIME 0RF Hold Instructions: Resume on 01/15/21. allopurinol 300 mg tablet 300 mg PO BEDTIME 0RF prochlorperazine maleate 10 mg tablet 10 mg PO Q4H PRN (Reason: Nausea) 0RF dexamethasone 4 mg tablet See Rx Instructions .ROUTE .COMPLEX 0RF Rx Instructions: take 5 tabs po 12 hours and 6 hours prior to each chemo treatment lorazepam 1 mg tablet 1 mg PO TID PRN (Reason: Nausea) 0RF ondansetron 4 mg tablet,disintegrating 4 mg PO Q8H PRN (Reason: Nausea And Vomiting) 0RF Humulin N NPH Insulin KwikPen 100 unit/mL (3 mL) insulin pen 10 unit SUBCUT Q8H 0RF insulin aspart U-100 [Novolog Flexpen U-100 Insulin] 100 unit/mL (3 mL) insulin pen See Rx Instructions .ROUTE .COMPLEX 0RF Rx Instructions: inject 2 unit subcutaneously for every 50 above 150 Lantus Solostar U-100 Insulin 100 unit/mL (3 mL) insulin pen 20 unit SUBCUT BEDTIME 0RF Discharge Orders: Discharge ED (Routine); Ordered 04/01/22 Ordered By: Norma Hawkins Referrals: Shanon Toth MD [Primary Care Provider] - 1-3 days Discharge Diet: Advance as tolerated Discharge Activity: Resume usual activity Patient Instructions: How to Use and Care for Your PEG Tube (ED) Coding Level of Care Code ED Construction Plumber for Perry Barbosa
== END 2022-04-01 03:35 | disposition home or self-care (01) ==
PROVIDERS: Emergency Provider Emergency Medicine; PCP Internal Medicine
DX: Z43.1 Encounter for attention to gastrostomy (principal)
CPT/HCPCS: 43762; 74018; 96374; 99283; 99285; Q9963

== ENCOUNTER 2022-07-06 18:21 | Emergency (ER) | payer MEDICARE, SELFPAY ==
[2022-07-06 19:12] VITALS: BP 80/58; PULSE 112; RESP 18; TEMP 36.6; O2SAT 92; BMI 20.2
--- NOTE | 2022-07-06 19:31 | CTR_ITS ---
PROCEDURE INFORMATION: Exam: CT Abdomen And Pelvis Without Contrast Exam date and time: 07/06/2022 7:41 PM Age: 67 years old Clinical indication: Vomiting; Patient HX: Esophageal cancer; Additional info: Hematemesis TECHNIQUE: Imaging protocol: Computed tomography of the abdomen and pelvis without contrast. Radiation optimization: All CT scans at this facility use at least one of these dose optimization techniques: automated exposure control; mA and/or kV adjustment per patient size (includes targeted exams where dose is matched to clinical indication); or iterative reconstruction. COMPARISON: MR abdomen wo/w con* [id number] 06/09/2021 10:03 AM RADIATION DOSE METRICS: Total DLP (mGy-cm): 402.46 FINDINGS: Tubes, catheters and devices: Percutaneous enteric tube tip in the small bowel. Heart: Coronary artery atherosclerotic calcifications. Mediastinal space: Distal esophageal suspected wall thickening and/or mass lesion with more proximal esophageal dilation containing fluid. Liver: Normal. No mass. Gallbladder and bile ducts: Cholelithiasis suspected. Pancreas: Normal. No ductal dilation. Spleen: Normal. No splenomegaly. Adrenal glands: Normal. No mass. Kidneys and ureters: Bilateral renal cysts, 1 of which on the right demonstrates some thin benign-appearing calcified septa. Stomach and bowel: Constipation. Appendix: No evidence of appendicitis. Intraperitoneal space: Unremarkable. No free air. No significant fluid collection. Vasculature: Unremarkable. No abdominal aortic aneurysm. Lymph nodes: Unremarkable. No enlarged lymph nodes. Urinary bladder: Prostate gland enlarged indenting the base of the urinary bladder. Reproductive: See Urinary bladder finding. Bones/joints: Unremarkable. No acute fracture. Soft tissues: Unremarkable. CT/CT abdomen pelvis wo con [id number] IMPRESSION: 1. Negative for acute inflammatory process in the abdomen or pelvis. 2. Coronary artery atherosclerotic calcifications. 3. Distal esophageal suspected wall thickening and/or mass lesion with more proximal esophageal dilation containing fluid. 4. Cholelithiasis suspected. 5. Bilateral renal cysts, 1 of which on the right demonstrates some thin benign-appearing calcified septa. 6. Percutaneous enteric tube tip in the small bowel. 7. Constipation. 8. Prostate gland enlarged indenting the base of the urinary bladder. COMMENTS: Consistent with the [employer]'s Incidental Findings Committee white paper (J Am Kelby [employer]iol 2018): Any incidental renal lesion less than 1 cm or classified as too small to characterize, or any incidental cystic renal lesion characterized as simple-appearing, is likely benign. No follow-up imaging is recommended for these lesions per consensus recommendations based on imaging criteria.
--- NOTE | 2022-07-06 19:33 | W.ED.NAVMDI ---
HPI - Nausea/Vomiting/Diarrhea General: Chief complaint: Nausea/Vomiting/Diarrhea Stated complaint: spiting up blood Time Seen by Provider: 07/06/22 19:31 Source: patient Mode of arrival: ambulatory Limitations: no limitations History of Present Illness: 67-year-old male has a history of esophageal cancer states that he takes tube feedings he does not typically eat he states that he has had some vomiting over the last 2 days he states today has been vomit was blood-streaked he denies any large bloody vomitus denies any blood in his stool he states he feels extremely dehydrated. He denies any fever denies any cough denies any pain he is not currently on any treatment for his cancer. Associated nausea: No Associated symtoms: Reports fatigue and malaise; Denies chest pain, dysuria, headache(s) or nausea Review of Systems Const: Reports: fatigue and malaise; Denies: fever(s), chills, body aches or change in appetite Eyes: Denies: blurry vision or eye discomfort ENMT: Denies: throat pain or dental pain Card: Denies: chest pain Resp: Denies: dyspnea GI: Reports: vomiting; Denies: abdominal pain, nausea or diarrhea : Denies: dysuria Musc: Denies: neck pain or back pain Skin/Breast: Denies: rash Neuro: Denies: headache(s) Psych: Denies: depression Hunter/Lymph: Denies: easy bruising All/Imm: Denies: urticaria PFSH ED PFSH: Medical History Angel's palsy Diabetes DVT (deep venous thrombosis) Esophageal cancer Hypertension Nephrolithiasis Surgical History H/O esophagogastroduodenoscopy (04/29/21) History of colonoscopy (01/13/21) Family History Denies family history of Anesthesia complication Bleeding disorder Social History Smoking and tobacco status: never smoked Physical Exam Const: COMMON NORMALS: patient oriented x3 GENERAL APPEARANCE: ill appearing and frail appearing HENMT: COMMON NORMALS: normocephalic and atraumatic HEAD & SCALP: normocephalic and atraumatic Eye: COMMON NORMALS: Equal, round and reactive pupils present and EOMs intact bilaterally PUPIL: Yes Equal, round and reactive pupils present Neck/C-Spine: COMMON NORMALS: full ROM and supple Chest: COMMONS NORMALS: normal inspection of the chest and normal palpation of entire chest wall Resp: COMMON NORMALS: normal respiratory effort, No retractions, No use of accessory muscles and clear to auscultation bilaterally AUSCULTATION: clear to auscultation bilaterally Cardio: COMMON NORMALS: regular rate, regular rhythm and No murmurs present (Cardio) RATE: regular rate RHYTHM: regular rhythm GI: COMMON NORMALS: Normal to inspection, nondistended, normoactive bowel sounds present, Soft to palpation, non-tender and no masses PALPATION: Yes Soft to palpation Extremity: COMMON NORMALS: normal to inspection and full ROM Neuro: COMMON NORMALS: patient oriented x3, moves all extremities and no focal motor deficits Psych: COMMON NORMALS: mental status grossly normal, Normal thought process present and cooperative THOUGHT PROCESS: Normal thought process present Skin: COMMON NORMALS: no rashes or lesions noted and no wounds GENERAL SKIN EXAM: no rashes or lesions noted Course Vital Signs: Vital signs: Vital Signs Temperature 97.8 F 07/06/22 19:12 Pulse Rate 100 07/06/22 21:30 Respiratory Rate 20 H 07/06/22 21:30 Blood Pressure 110/79 07/06/22 21:30 Pulse Oximetry 100 07/06/22 21:30 Oxygen Delivery Me thod 07/06/22 19:12 MDM - Nausea/Vomiting/Diarrhea Medical Decision Making Patient presents here with hematemesis along with dehydration he had no hematemesis here his hemoglobin is normal he was dehydrated he feels much improved after IV fluids I did recommend admission but he states that he would like to just go home he wants the IV out and feels improved and wants to go home now. His vitals have improved he looks improved we will prescribe him Zofran he is to follow-up with PCP and return if worsening. Lab Data : 07/06/22 19:30 07/06/22 19:30 Radiology Impressions Abdomen/Pelvis CT 07/06/22 19:31 IMPRESSION: 1. Negative for acute inflammatory process in the abdomen or pelvis. 2. Coronary artery atherosclerotic calcifications. 3. Distal esophageal suspected wall thickening and/or mass lesion with more proximal esophageal dilation containing fluid. 4. Cholelithiasis suspected. 5. Bilateral renal cysts, 1 of which on the right demonstrates some thin benign-appearing calcified septa. 6. Percutaneous enteric tube tip in the small bowel. 7. Constipation. 8. Prostate gland enlarged indenting the base of the urinary bladder. COMMENTS: Consistent with the [employer]'s Incidental Findings Committee white paper (J Am Kelby Radiol 2018): Any incidental renal lesion less than 1 cm or classified as too small to characterize, or any incidental cystic renal lesion characterized as simple-appearing, is likely benign. No follow-up imaging is recommended for these lesions per consensus recommendations based on imaging criteria. Laboratory Results WBC 8.9 10^3/uL (4.0-10.0) 07/06/22 19:30 RBC 4.51 10^6/uL (4.1-5.3) 07/06/22 19: Hgb 13.8 g/dL (11.7-16.6) 07/06/22 19: Hct 42.3 % (42.0-52.0) 07/06/22 19: MCV 93.8 fl (80-94) 07/06/22 19: MCH 30.6 pg (28.0-34.0) 07/06/22 19: MCHC 32.6 g/dL (30.0-36.0) 07/06/22 19: RDW 15.1 % (12.1-15.1) 07/06/22 19: Plt Count 307 10^3/cmm (130-400) 07/06/22 19: MPV 9.9 fL (7.4-10.4) 07/06/22 19:30 Neut % (Auto) 73.2 % 07/06/22 19: Lymph % (Auto) 19.8 % 07/06/22 19: Bulloch % (Auto) 5.6 % 07/06/22 19:30 Eos % (Auto) 0.4 % 07/06/22 19:30 Baso % (Auto) 0.7 % 07/06/22 19: Neut # (Auto) 6.54 10^3/uL (1.8-7.7) 07/06/22 19:30 Lymph # (Auto) 1.8 10^3/uL (0.8-4.8) 07/06/22 19:30 Bulloch # (Auto) 0.5 10^3/uL (0.2-0.9) 07/06/22 19:30 Eos # (Auto) 0.0 10^3/uL (0.0-0.8) 07/06/22 19:30 Baso # (Auto) 0.1 10^3/uL (0.0-0.1) 07/06/22 19:30 Nucleated RBC % (auto) 0 % 07/06/22: Nucleated RBCs # 0.0 /100WBC 07/06/22 19: Sodium 145 mmol/L (136-145) 07/06/22 19: Potassium 4.5 mmol/L (3.5-5.1) 07/06/22: Chloride 103 mmol/L (98-107) 07/06/22 19: Carbon Dioxide 26 mmol/L (22-29) 07/06/22 19:30 Anion Gap 20.5 (5-19) H 07/06/22 19:30 BUN 72 mg/dL (8-23) H 07/06/22 19:30 Creatinine 2.0 mg/dL (0.7-1.2) H 07/06/22 19:30 GFR Calculation 33.3 mL/min (90-130) L 07/06/22 19: Glucose 340 mg/dL (65-115) H 07/06/22 19: Calculated Osmolality 335 mOsm/kg (285-295) H 07/06/22 19:30 Lactate 3.0 mmol/L (0.5-2.2) H 07/06/22 19:30 Calcium 10.7 mg/dL (8.5-10.5) H 07/06/22 19:30 Total Bilirubin 0.8 mg/dL (0.15-1.2) 07/06/22 19:30 AST 12 U/L (0-40) 07/06/22 19:30 ALT 23 U/L (0-41) 07/06/22 19: Alkaline Phosphatase 121 U/L (40-130) 07/06/22 19:30 Total Protein 8.6 g/dL (6.6-8.7) 07/06/22 19:30 Albumin 4.8 g/dL (3.5-5.2) 07/06/22 19:30 Globulin 3.8 g/dL (1.3-4.6) 07/06/22 19:30 Lipase 43 U/L (13-60) 07/06/22 19:30 Discharge Plan Discharge Patient Disposition: Home Clinical Impression: Hematemesis, Dehydration Condition: Stable Prescriptions: New ondansetron 4 mg tablet,disintegrating 4 mg PO Q6H PRN (Reason: nausea and vomiting) Qty: 14 0RF No Action omeprazole 40 mg capsule,delayed release(DR/EC) 40 mg PO PRN lisinopril-hydrochlorothiazide 20-25 mg tablet 1 tab PO QAM atorvastatin 20 mg tablet 20 mg PO DAILY Xarelto 20 mg tablet 20 mg PO BEDTIME Hold Instructions: Resume on 01/15/21. allopurinol 300 mg tablet 300 mg PO BEDTIME prochlorperazine maleate 10 mg tablet 10 mg PO Q4H PRN (Reason: Nausea) dexamethasone 4 mg tablet See Rx Instructions .ROUTE .COMPLEX Rx Instructions: take 5 tabs po 12 hours and 6 hours prior to each chemo treatment lorazepam 1 mg tablet 1 mg PO TID PRN (Reason: Nausea) ondansetron 4 mg tablet,disintegrating 4 mg PO Q8H PRN (Reason: Nausea And Vomiting) Humulin N NPH Insulin KwikPen 100 unit/mL (3 mL) insulin pen 10 unit SUBCUT Q8H insulin aspart U-100 [Novolog Flexpen U-100 Insulin] 100 unit/mL (3 mL) insulin pen See Rx Instructions .ROUTE .COMPLEX Rx Instructions: inject 2 unit subcutaneously for every 50 above 150 Lantus Solostar U-100 Insulin 100 unit/mL (3 mL) insulin pen 20 unit SUBCUT BEDTIME Discharge Orders: Discharge ED (Routine); Ordered 07/06/22 Ordered By: Norma Hawkins Referrals: Shanon Toth MD [Primary Care Provider] - 1-3 days Discharge Diet: Advance as tolerated Discharge Activity: Resume usual activity Patient Instructions: Acute Nausea and Vomiting (ED) Coding Level of Care Code ED Senior National Account Manager for Chg Fwd Exam Comprehensive
[2022-07-06 19:39] LABS: Basophils # 0.1 10^3/uL (0.0-0.1); Basophils % 0.7 %; Eosinophils % 0.4 %; Hematocrit 42.3 % (42.0-52.0); Hemoglobin 13.8 g/dL (11.7-16.6); Lymphocytes # 1.8 10^3/uL (0.8-4.8); Lymphocytes % 19.8 %; Mean Corpuscular HGB Conc 32.6 g/dL (30.0-36.0); Mean Corpuscular Hemoglobin 30.6 pg (28.0-34.0); Mean Corpuscular Volume 93.8 fl (80-94); Mean Platelet Volume 9.9 fL (7.4-10.4); Monocytes # 0.5 10^3/uL (0.2-0.9); Monocytes % 5.6 %; Neutrophils # 6.54 10^3/uL (1.8-7.7); Neutrophils % 73.2 %; Nucleated Red Blood Cells % 0 %; Platelet Count 307 10^3/cmm (130-400); Red Blood Count 4.51 10^6/uL (4.1-5.3); Red Cell Distribution Width 15.1 % (12.1-15.1); White Blood Count 8.9 10^3/uL (4.0-10.0)
[2022-07-06] MEDS: sodium chloride 0.9% 1,000 ML 999 ML IV (19:50)
[2022-07-06] MEDS: ondansetron 2 mg/ML SDV 2 mL 4 MG IVP (19:51)
[2022-07-06 20:01] VITALS: BP 96/66
[2022-07-06 20:38] LABS: Anion Gap 20.5 (5-19); Blood Urea Nitrogen 72 mg/dL (8-23); Chloride 103 mmol/L (98-107); Glomerular Filtration Rate 33.3 mL/min (90-130); Glucose 340 mg/dL (65-115); Osmolality Calculated 335 mOsm/kg (285-295); Potassium 4.5 mmol/L (3.5-5.1); Sodium 145 mmol/L (136-145)
[2022-07-06 20:39] LABS: Alanine Aminotransferase 23 U/L (0-41); Aspartate Amino Transferase 12 U/L (0-40); Calcium 10.7 mg/dL (8.5-10.5); Carbon Dioxide 26 mmol/L (22-29); Globulin 3.8 g/dL (1.3-4.6); Total Bilirubin 0.8 mg/dL (0.15-1.2); Total Protein 8.6 g/dL (6.6-8.7)
[2022-07-06 20:40] LABS: Albumin Level 4.8 g/dL (3.5-5.2); Alkaline Phosphatase 121 U/L (40-130); Lipase 43 U/L (13-60)
[2022-07-06] MEDS: sodium chloride 0.9% 500 ML 999 ML IV (21:20)
[2022-07-06 21:30] VITALS: BP 110/79; PULSE 100; RESP 20; O2SAT 100
[2022-07-06] MEDS: hyDROXYzine 25 mg Capsule 50 MG PO (21:52)
[2022-07-06 22:18] VITALS: BP 110/79; PULSE 97; RESP 16; O2SAT 97
== END 2022-07-06 21:55 | disposition home or self-care (01) ==
PROVIDERS: Emergency Provider Emergency Medicine; PCP Internal Medicine
DX: K92.0 Hematemesis (principal); E86.0 Dehydration; Z79.4 Long term (current) use of insulin; E11.9 Type 2 diabetes mellitus without complications; I10 Essential (primary) hypertension; Z85.01 Personal history of malignant neoplasm of esophagus
CPT/HCPCS: 74176; 80053; 83605; 83690; 85025; 96361; 96374; 99285; J2405; J7030; J7040